=== PATIENT | male | born 1945 | race Caucasian/White ===

== ENCOUNTER 2021-07-14 06:05 | Inpatient (IN) ==
--- NOTE | 2021-06-20 14:06 | PAT Medication Instructions ---
Medication Instructions Date of Service June 20, 2021 Home Medications allopurinol 300 mg tablet 300 mg PO QAM amiodarone 200 mg tablet 200 mg PO QAM bisoprolol fumarate 5 mg tablet 5 mg PO BID bumetanide 2 mg tablet 2 mg PO UD cetirizine 10 mg tablet (Zyrtec) 10 mg PO QAM cholecalciferol (vitamin D3) 125 mcg (5,000 unit) tablet (Vitamin D3) 125 mcg PO QAM clopidogrel 75 mg tablet (Plavix) 75 mg PO QAM coQ10 (ubiquinol) 200 mg capsule 200 mg PO QAM docusate sodium 100 mg tablet (Stool Softener) 100 mg PO HS insulin NPH isoph U-100 human 100 unit/mL (3 mL) subcutaneous pen (Novolin N Flexpen) 50 unit SUBCUT BID insulin regular human 100 unit/mL (3 mL) subcutaneous pen (Novolin R Flexpen) 40 - 50 unit SUBCUT TID krill 350 mg-omega-3 90 mg-dha 24 mg-epa 50 qi-lvrqyli-rgddi capsule ([place]-3 Krill Oil) 1 cap PO QAM magnesium oxide 400 mg PO BID methylprednisolone 4 mg tablet (Medrol) 2 mg PO QAM multivitamin 1 tab PO QAM nitroglycerin 0.4 mg/hr transdermal 24 hour patch 1 patch TRANSDERMAL DAILY pantoprazole 20 mg tablet,delayed release (Protonix) 20 mg PO QAM spironolactone 100 mg tablet (Aldactone) 50 mg PO QAM tramadol 50 mg tablet 50 mg PO Q8H PRN turmeric 400 mg capsule 400 mg PO QAM vitamin B complex 1 tab PO QAM Continue as directed methylprednisolone 4 mg tablet (Medrol) 2 mg PO QAM nitroglycerin 0.4 mg/hr transdermal 24 hour patch 1 patch TRANSDERMAL DAILY (do not apply on or around surgical area) ASK your prescriber and surgeon clopidogrel 75 mg tablet (Plavix) 75 mg PO QAM STOP taking 2 weeks before surgery coQ10 (ubiquinol) 200 mg capsule 200 mg PO QAM krill 350 mg-omega-3 90 mg-dha 24 mg-epa 50 mu-snxlkrz-tsqlp capsule ([place]-3 Krill Oil) 1 cap PO QAM DO NOT take the morning of surgery bumetanide 2 mg tablet 2 mg PO UD cetirizine 10 mg tablet (Zyrtec) 10 mg PO QAM cholecalciferol (vitamin D3) 125 mcg (5,000 unit) tablet (Vitamin D3) 125 mcg PO QAM magnesium oxide 400 mg PO BID multivitamin 1 tab PO QAM spironolactone 100 mg tablet (Aldactone) 50 mg PO QAM turmeric 400 mg capsule 400 mg PO QAM vitamin B complex 1 tab PO QAM insulin regular human 100 unit/mL (3 mL) subcutaneous pen (Novolin R Flexpen) 40 - 50 unit SUBCUT TID Take morning of surgery With a small sip of water, OTHERWISE NOTHING TO EAT OR DRINK AFTER MIDNIGHT: allopurinol 300 mg tablet 300 mg PO QAM amiodarone 200 mg tablet 200 mg PO QAM bisoprolol fumarate 5 mg tablet 5 mg PO BID pantoprazole 20 mg tablet,delayed release (Protonix) 20 mg PO QAM tramadol 50 mg tablet 50 mg PO Q8H PRN(okay to take up to 4 hours prior to surgery if needed) Refer to insulin heading for instructions. Take evening before surgery bisoprolol fumarate 5 mg tablet 5 mg PO BID docusate sodium 100 mg tablet (Stool Softener) 100 mg PO HS magnesium oxide 400 mg PO BID tramadol 50 mg tablet 50 mg PO Q8H PRN(if needed) insulin NPH isoph U-100 human 100 unit/mL (3 mL) subcutaneous pen (Novolin N Flexpen) 50 unit SUBCUT BID Insulin Dependent Diabetic Patients * Test your blood sugar the morning of surgery * If Blood Sugar is GREATER THAN 150, take HALF of your regular dose of: insulin NPH isoph U-100 human 100 unit/mL (3 mL) subcutaneous pen (Novolin N Flexpen) 25 unit SUBCUT * If Blood Sugar is LESS THAN 150, DO NOT TAKE ANY: Other Notes If you have any questions please call us at [phone] or [phone] or [phone] or [phone]
--- NOTE | 2021-06-26 12:19 | Anesthesiology Consultation ---
Date of Service June 26, 2021 Assessment & Plan (1) Encounter for pre-operative examination: - check BSG am DOS. - CKD: will fax optimization note to card maker. Awaiting nephrology response. - cardiac history including 100% occlusion of several coronary arteries: Case discussed with Dr. Santizo who advised obtaining cardiology clearance with clearance to include notation on abnormal stress testing and catheterization. Form completed, awaiting cardiology clearance. - ICD: Awaiting interrogation report from cardiology. No pacer rep needed per Dr. Santizo. - cardiology office visit 04/25/2021: "...experiencing occasional chest discomfort, shortness of breath, dizziness/lightheadedness, and fatigue...occasional episodes of mild to moderate chest discomfort that began years ago and last minutes...heaviness quality...shortness of breath occurs with minimal levels of exertion...episodes of mild lightheadedness began years ago and have been occurring occasionally...fatigue...occurring for years...Pt with multiple complaints, none of which are new or worsening. Fell in the tub; was seated in a tub chair, and slipped on the soapy surface of the tub while trying to stand. Denied dizziness, syncope...PPM interrogation done 04/19/21 showed no new events. Pt denies any firing of ICD...Pt was instructed to hold Flomax for 2 weeks to see if dizziness improves..." - COVID screening: Per assessment on 06/26/2021: Travel screen negative, no known COVID-19 positive contacts or current COVID-19 related symptoms in past 2 weeks. Surgeon arranging preop COVID testing, scheduled 07/12/2021. Awaiting results. Chart Review Chart Review: Pending: Refer to Additional Notes / Consult section and Patient seen in Pre Admission Testing Teaching & Discussion Pre-Anesthesia Teaching/Discussion Notes: Instructed NPO after midnight before surgery, except medications with 15 cc of water. Medication instructions provided according to the PAT guidelines. History Surgery Operation Date: 07/14/21 07:45 Proposed Procedures p L3-S1 Decompression Fusion Spinal Cord Monitoring - Gal Leigh DO Height/Weight Height: 5 ft 11 in Weight: 108.2 kg Allergies Allergy/AdvReac Type Severity Reaction Status Date / Time adhesive tape Allergy Intermediate REMOVES Verified 06/20/21 09:54 SKIN carvedilol [From Coreg] Allergy Intermediate SYNCOPE Verified 06/20/21 09:54 Iodinated Contrast Media Allergy Intermediate HAS KIDNEY Verified 06/20/21 09:54 PROBLEMS Medications Home Medications Medication Instructions Recorded Confirmed Last Taken allopurinol 300 mg tablet 300 mg PO QAM 06/20/21 06/20/21 Unknown amiodarone 200 mg tablet 200 mg PO QAM 06/20/21 06/20/21 Unknown bisoprolol fumarate 5 mg tablet 5 mg PO BID 06/20/21 06/20/21 Unknown bumetanide 2 mg tablet 2 mg PO UD 06/20/21 06/20/21 Unknown cetirizine 10 mg tablet (Zyrtec) 10 mg PO QAM 06/20/21 06/20/21 Unknown cholecalciferol (vitamin D3) 125 125 mcg PO QAM 06/20/21 06/20/21 Unknown mcg (5,000 unit) tablet (Vitamin D3) clopidogrel 75 mg tablet (Plavix) 75 mg PO QAM 06/20/21 06/20/21 Unknown coQ10 (ubiquinol) 200 mg capsule 200 mg PO QAM 06/20/21 06/20/21 Unknown docusate sodium 100 mg tablet 100 mg PO HS 06/20/21 06/20/21 Unknown (Stool Softener) insulin NPH isoph U-100 human 100 50 unit SUBCUT BID 06/20/21 06/20/21 Unknown unit/mL (3 mL) subcutaneous pen (Novolin N Flexpen) insulin regular human 100 unit/mL 40 - 50 unit SUBCUT TID 06/20/21 06/20/21 Unknown (3 mL) subcutaneous pen (Novolin R Flexpen) krill 350 mg-omega-3 90 mg-dha 24 1 cap PO QAM 06/20/21 06/20/21 Unknown mg-epa 50 df-luzdebd-todwi capsule ([place]-3 Krill Oil) magnesium oxide 400 mg PO BID 06/20/21 06/20/21 Unknown methylprednisolone 4 mg tablet 2 mg PO QAM 06/20/21 06/20/21 Unknown (Medrol) multivitamin 1 tab PO QAM 06/20/21 06/20/21 Unknown nitroglycerin 0.4 mg/hr 1 patch TRANSDERMAL DAILY 06/20/21 06/20/21 Unknown transdermal 24 hour patch pantoprazole 20 mg tablet,delayed 20 mg PO QAM 06/20/21 06/20/21 Unknown release (Protonix) spironolactone 100 mg tablet 50 mg PO QAM 06/20/21 06/20/21 Unknown (Aldactone) tramadol 50 mg tablet 50 mg PO Q8H PRN 06/20/21 06/20/21 Unknown turmeric 400 mg capsule 400 mg PO QAM 06/20/21 06/20/21 Unknown vitamin B complex 1 tab PO QAM 06/20/21 06/20/21 Unknown Past Medical History Medical History (Updated 06/26/21 @ 12:41 by Kiley Orozco PA-C) Arthritis Atrial fibrillation Carotid stenosis CHF (congestive heart failure) FOLLOWED BY [facility] (DR. LONG) Chronic kidney disease STAGE 3? Coronary artery disease Degenerative disc disease Diabetes mellitus, type 2 IDDM GERD (gastroesophageal reflux disease) controlled, stable pe rpt Hearing deficit History of COVID-19 03/2020 (HOSPITALIZED BUT NOT INTUBATED AT [facility] FOR DIFFICULTY BREATHING>SHORT TIME OXYGEN USE) Hx of gout Hyperlipidemia Hypertension controlled, stable per pt ICD (implantable cardioverter-defibrillator) in place IMPLANTED 2018 PLACED FOR IRREGULAR HEART BEAT (DR. LONG FOLLOWS) Irregular heart beat Ischemic cardiomyopathy Myocardial Infarction Peripheral neuropathy Peripheral vascular disease Spinal stenosis Transient ischemic attack (TIA) 2002 AFTER CABG>LEFT SIDE MILD FOOT PROBLEMS Valvular heart disease Patient denies h/o seizures, blood clots or blood transfusions. Exercise / Class Metabolic Activity III < 4 Walking/Shop/Light housework (denies CP or SOB; ambulates with rolling walker) Past Family History Family History Father Family history of diabetes mellitus Family hx of colon cancer Other No family history of adverse response to anesthesia Past Surgical History Surgical History History of appendectomy History of cardiac cath MULTIPLE TIMES WITH 20 STENTS IN HEART (LAST PLACED "A COUPLE YEARS AGO") LAST HEART CATH 03/2021 [facility]: 100% COREMAKING MACHINE OPERATOR of mid RCA. 100% occluded SVG to RCA. Prox LAD 100% stenosed. Mild disease of SVG to left Cx. Sig elevated R atrial and R ventricular pressures. Recommendations: max medical therapy. History of cataract surgery LEFT History of coronary artery bypass graft X 4 VESSELS 2 TIMES>1993 AND 2002 AT [facility] History of esophagogastroduodenoscopy (EGD) History of tooth extraction S/P epidural steroid injection Past Anesthesia History No Hx of Anesthesia Complications and No Family Hx of Anesthesia Complications History of PONV No Hx of PONV and No Hx of Motion Sickness Social History Smoking Status: Never smoker Do You Dip or Chew Tobacco: No Hx Alcohol Use: No substance use type: does not use Review of Systems Snoring, sleep study 2 yrs ago negative for sleep apnea per pt. Patient denies chest pain, shortness of breath, fever, chills, cough, wheezing, or palpitations. Physical Exam Vital Signs Vitals BP 103/62 (initial automatic BP 99/59, pt states is usually above 100 had been reclined for EKG denied lightheadedness/dizziness, repeat BP 15 minutes later as shown) P 70 TEMP 98.6 SP02 96% on RA RESP 17 Physical Facial hair/blair Full cervical extension range of motion without pain Full TMJ range of motion TMD 3.5 finger breaths Mallampati Score 2 Dentition: intact, several missing front lower teeth, one front chipped tooth; denies loose teeth, caps/crowns, implants or bridges Lungs: normal respiratory effort. Clear throughout to auscultation, no adventitious breath sounds Cardiac: regular rate and rhythm, no murmurs noted Carotid arteries: negative bruit bilat Extremities: no distal extremity edema Lab Results Anesthesia Preop Results Results Anesthesia Widget: WBC 11.76 K/uL (4.8-10.8) H 06/26/21 Hgb 12.0 g/dL (14.0-18.0) L 06/26/21 Hct 38.4 % (42-52) L 06/26/21 Plt 224 K/uL (130-400) 06/26/21 Na 135 mmol/L (136-145) L 06/26/21 K 4.8 mmol/L (3.5-5.1) 06/26/21 Cl 100 mmol/L (98-107) 06/26/21 CO2 24 mmol/L (21-32) 06/26/21 BUN 83 mg/dl (6-23) H 06/26/21 Creat 2.47 mg/dl (0.6-1.4) H 06/26/21 Glucose Level 282 mg/dl (70-99(Fasting)) H 06/26/21 PT 10.3 Seconds (9.0-12.0) 06/26/21 PTT 26.2 Seconds (21.0-31.0) 06/26/21 INR 1.0 (0.9-1.1) 06/26/21 HA1c 8.2 % (4.5-5.6) H 06/26/21 Urine Color Yellow 06/26/21 Urine Appearance Clear (Clear) 06/26/21 Urine pH 6.0 (4.5-7.5) 06/26/21 Urine Specific [place] 1.011 (1.000-1.030) 06/26/21 Urine Protein Negative (Negative) 06/26/21 Urine Glucose (UA) Negative (Negative) 06/26/21 Urine Ketones Negative (Negative) 06/26/21 Urine Blood Negative (Negative) 06/26/21 Urine Nitrite Negative (Negative) 06/26/21 Urine Bilirubin Negative (Negative) 06/26/21 Urine Urobilinogen Negative (Negative) 06/26/21 Urine Leukocyte Esterase Negative (Negative) 06/26/21 Blood Type A Positive 06/26/21 Antibody Screen NEGATIVE 06/26/21 Lab Comments: Surgeon's office made aware of elevated A1c. Testing Electrocardiogram Date: 06/26/21 poor data quality AV dual-paced rhythm with occasional ventricular-paced complexes Biventricular pacemaker detected Chest X-Ray Date: 10/05/20 Stable CABG and left pacemaker Stable cardiomegaly without pulmonary vascular congestion Prior pulmonary opacities have resolved No pneumonia, pleural effusion or pneumothorax seen Echocardiogram Date: 10/25/20 Technically difficult study Moderate dilation of left ventricle Borderline LVH Severely decreased left ventricular systolic function, EF 25-30% Mild dilation of left ventricle Severe enlargement left atrium Moderate enlargement right atrium Mild to moderate mitral regurgitation Mild tricuspid regurgitation Borderline pulmonary hypertension; estimated pulmonary artery systolic pressure is 44 mmHg Stress Test Date: 12/21/20 Non-diagnostic Mixture of ischemia and focal infarction involving the anterior, septal and inferior llamas Apical infarction with mild residual myocardial ischemia Cardiac Catheterization Date: 03/22/21 100% COREMAKING MACHINE OPERATOR of mid RCA. 100% occluded SVG to RCA. Prox LAD 100% stenosed. Mild disease of SVG to left Cx. Sig elevated R atrial and R ventricular pressures. Recommendations: max medical therapy.
[~2021-07-14 06:05] MED LIST: ACETAMINOPHEN 500 MG TAB PO SCH; CeleBREX 200 MG CAP PO SCH; GABAPENTIN 300 MG CAP PO SCH; SODIUM CHLORIDE 0.9% 1000ML IV SCH; ceFAZolin 2000MG 2,000 MG/15 ML SYR IV SCH
--- NOTE | 2021-07-14 09:12 | History & Physical Bridge Note ---
Date of Service July 14, 2021 History & Physical Bridge Note I have examined the patient, reviewed the History & Physical and in the interval since the performance of the History & Physical I have noted the following changes of clinical significance: no changes noted
--- NOTE | 2021-07-14 09:12 | History & Physical Report ---
Date of Service July 14, 2021 Assessment & Plan (1) Neurogenic claudication due to lumbar spinal stenosis: Plan: L3-S1 decompression fusion History of Present Illness Chief Complaint: Back and leg pain Primary Care Provider: NO PCP This is a 75-year-old male presents with marked decline in status with worsening back and leg pain. Failing course of nonoperative care is here for surgical invention. Allergies Allergy/AdvReac Type Severity Reaction Status Date / Time adhesive tape Allergy Intermediate REMOVES Verified 06/20/21 09:54 SKIN carvedilol [From Coreg] Allergy Intermediate SYNCOPE Verified 06/20/21 09:54 Iodinated Contrast Media Allergy Intermediate HAS KIDNEY Verified 06/20/21 09:54 PROBLEMS Home Medications Medication Instructions Recorded Confirmed Type allopurinol 300 mg tablet 300 mg PO QAM 06/20/21 06/20/21 History amiodarone 200 mg tablet 200 mg PO QAM 06/20/21 06/20/21 History bisoprolol fumarate 5 mg tablet 5 mg PO BID 06/20/21 06/20/21 History bumetanide 2 mg tablet 2 mg PO UD 06/20/21 06/20/21 History cetirizine 10 mg tablet (Zyrtec) 10 mg PO QAM 06/20/21 06/20/21 History cholecalciferol (vitamin D3) 125 125 mcg PO QAM 06/20/21 06/20/21 History mcg (5,000 unit) tablet (Vitamin D3) clopidogrel 75 mg tablet (Plavix) 75 mg PO QAM 06/20/21 06/20/21 History coQ10 (ubiquinol) 200 mg capsule 200 mg PO QAM 06/20/21 07/14/21 History docusate sodium 100 mg tablet 100 mg PO HS 06/20/21 07/14/21 History (Stool Softener) insulin NPH isoph U-100 human 100 22 unit SUBCUT BID 06/20/21 07/14/21 History unit/mL (3 mL) subcutaneous pen (Novolin N Flexpen) insulin regular human 100 unit/mL 40 - 50 unit SUBCUT TID 06/20/21 07/14/21 History (3 mL) subcutaneous pen (Novolin R Flexpen) krill 350 mg-omega-3 90 mg-dha 24 1 cap PO QAM 06/20/21 07/14/21 History mg-epa 50 gr-pdopeip-czkog capsule ([place]-3 Krill Oil) magnesium oxide 400 mg PO BID 06/20/21 07/14/21 History methylprednisolone 4 mg tablet 2 mg PO QAM 06/20/21 07/14/21 History (Medrol) multivitamin 1 tab PO QAM 06/20/21 07/14/21 History nitroglycerin 0.4 mg/hr 1 patch TRANSDERMAL DAILY 06/20/21 07/14/21 History transdermal 24 hour patch pantoprazole 20 mg tablet,delayed 20 mg PO QAM 06/20/21 07/14/21 History release (Protonix) spironolactone 100 mg tablet 50 mg PO QAM 06/20/21 07/14/21 History (Aldactone) tramadol 50 mg tablet 50 mg PO Q8H PRN 06/20/21 07/14/21 History turmeric 400 mg capsule 400 mg PO QAM 06/20/21 07/14/21 History vitamin B complex 1 tab PO QAM 06/20/21 07/14/21 History Past Med/Surg History Medical History (Updated 07/14/21 @ 09:12 by Gal Leigh DO) Arthritis Atrial fibrillation Carotid stenosis CHF (congestive heart failure) FOLLOWED BY [facility] (DR. LONG) Chronic kidney disease STAGE 3?, follows with Dr. Stone Coronary artery disease Degenerative disc disease Diabetes mellitus, type 2 IDDM GERD (gastroesophageal reflux disease) controlled, stable pe rpt Hearing deficit History of COVID-19 03/2020 (HOSPITALIZED BUT NOT INTUBATED AT [facility] FOR DIFFICULTY BREATHING>SHORT TIME OXYGEN USE) Hx of gout Hyperlipidemia Hypertension controlled, stable per pt ICD (implantable cardioverter-defibrillator) in place IMPLANTED 2019 PLACED FOR IRREGULAR HEART BEAT (DR. LONG FOLLOWS) Irregular heart beat Ischemic cardiomyopathy Myocardial Infarction Peripheral neuropathy Peripheral vascular disease Spinal stenosis Transient ischemic attack (TIA) 2002 AFTER CABG>LEFT SIDE MILD FOOT PROBLEMS Valvular heart disease Surgical History History of appendectomy History of cardiac cath MULTIPLE TIMES WITH 20 STENTS IN HEART (LAST PLACED "A COUPLE YEARS AGO") LAST HEART CATH 03/2021 [facility]: 100% DOUBLE HEAD MACHINE OPERATOR of mid RCA. 100% occluded SVG to RCA. Prox LAD 100% stenosed. Mild disease of SVG to left Cx. Sig elevated R atrial and R ventricular pressures. Recommendations: max medical therapy. History of cataract surgery LEFT History of coronary artery bypass graft X 4 VESSELS 2 TIMES>1993 AND 2002 AT [facility] History of esophagogastroduodenoscopy (EGD) History of tooth extraction S/P epidural steroid injection Family History Father Family history of diabetes mellitus Family hx of colon cancer Other No family history of adverse response to anesthesia Social History Smoking Status: Never smoker Second Hand Exposure: Yes (IN THE PAST (WORK EXPOSURE)); Do You Dip or Chew Tobacco: No; Hx Alcohol Use: No Preferred Language: Maltese Greek Professor Required: No Beliefs That Will Affect Care: None Current Living Situation: Spouse Feels Safe at Home: Yes Safety Concerns: Feels Safe At This Time Assistive Devices: Cane, Glasses and Walker Assistive Devices Comment: READING GLASSES Physical Exam Physical Exam: Patient is alert and oriented Heart regular rhythm Lungs clear Results & Data ([facility]) Vital Signs (Past 12 Hours) Vital Signs Temp Pulse Resp BP Pulse Ox 07/14/21 06:45 36.9 C 70 20 109/64 93
[2021-07-14] MEDS ORDERED: BUPIVACAINE/EPINEPHRINE 0.25% 1:200,000 30 ML VIAL ONE (09:22)
[2021-07-14] MEDS ORDERED: ceFAZolin 330 MG/ML 1 GM VIAL ONE (09:22)
[2021-07-14] MEDS ORDERED: ROCURONIUM BROMIDE 10 MG/ML 5 ML VIAL IV ONE (09:27)
[2021-07-14] MEDS ORDERED: MIDAZOLAM HCL 1 MG/ML 2ML VIAL ONE (09:27)
[2021-07-14] MEDS ORDERED: fentaNYL citrate 100 MCG/2 ML VIAL ONE ×3 (09:27→13:29)
[2021-07-14] MEDS ORDERED: PROPOFOL IV EMULSION 10 MG/ML 20 ML VIAL IV ONE (09:27)
[2021-07-14] MEDS ORDERED: LIDOCAINE 2% 2 ML VIAL/AMP(20MG/ML) INFIL ONE (09:27)
[2021-07-14] MEDS ORDERED: EPINEPHRINE IV ONE (10:00)
[2021-07-14] MEDS ORDERED: SODIUM CHLORIDE IV ONE (10:00)
[2021-07-14] MEDS ORDERED: ePHEDrine sulfate 50 MG/ML AMP ONE (11:16)
[2021-07-14] MEDS ORDERED: SUGAMMADEX SODIUM 200 MG/2 ML VIAL IV ONE (11:24)
[2021-07-14] MEDS ORDERED: FLOSEAL HEMOSTATIC MATRIX 10ML TOP ONE (11:30)
[2021-07-14] MEDS ORDERED: ONDANSETRON INJ 2 MG/ML 2 ML VIAL ONE (11:46)
[2021-07-14] MEDS ORDERED: ALBUMIN HUMAN 5% 12.5 GM/250 ML VIAL IV ONE (12:13)
--- NOTE | 2021-07-14 12:54 | Operative Report ---
Post Operative Report Pre & Post Diagnosis Operation Date: 07/14/21 09:05 Pre-Op Diagnosis: Spinal Stenosis of Lumbar Region with Radiculopathy Post-Op Diagnosis: Spinal Stenosis of Lumbar Region with Radiculopathy I identified the patient and participated in the time-out.: Yes Procedure Operation Date: 07/14/21 09:05 Actual Procedures #1 lumbar decompression with bilateral medial facetectomies and foraminotomies L3-L4 L4-5. #2 posterior spinal fusion L3-L4 L4-5. #3 placed posterior instrumentation L3-L4 L4-5. #4 interbody fusion L4-L5. #5 placement of titanium cage 14 x 26 mm at L4-L5. #6 placement locally harvested morselized autograft in the posterior gutters. #7 placement infuse collagen sponge, master graft in the posterior lateral gutters and I factor interbody space. Surgeon Gal Leigh, Permaculture Designer Luke Melendez Estimated Blood Loss 300 Findings See Below Patient is 5 foot 11 inches tall weighing over 107 kg with a BMI of 33. Patient body habitus did contribute to significant technical difficulty required deepest retractors longus instruments in order to perform his procedure. This had at least 50% increased operative time. Specimens None Indications This is a 75-year-old male presents with severe limitations with back and bilateral leg pain. Despite significant cardiac risk he wanted to pursue surgery. After careful review with the patient and his proceed with surgery. Description of Procedure Patient met with identified informed consent obtained. Patient was then taken to the operative suite underwent intubation placed in a prone position is acceptable center frame. All bony prominences well-padded eyes inspected to ensure no external pressure placed upon the. This point the lumbar spine was prepped and draped in normal sterile fashion. Sharp dissection with the assistance of Bovie cautery was performed down to and exposing the lamina and transverse processes of L3-L4-L5 bilaterally. From caudal cephalad fashion complete laminectomy of L4 L3 was performed including bilateral medial facet ectomies foraminotomies addressing severe spinal stenosis. Pedicle screws were then placed in L3 on L4-L5 bilaterally with assistance of fluoroscopy and appropriate sized neris placed. By way of a transforaminal portion radically discectomy of L4-L5 was performed endplates curetted to subcortical being bone and a 14 x 26 mm titanium cage filled with I factor tapped in position. The rods were then compressed locked into final position bilaterally. The transverse processes of L3 L4-5 burred to subcortical bleeding bone. Infuse collagen sponge master graft lobe autograft was placed in the posterior gutters. 15 round LATOSHA drain inserted. Incision was then closed with 1 Vicryl the fascia 2-0 Vicryl subcutaneously and 4 Monocryl for final skin closure. Steri-Strip sterile dressings placed. Patient will continue PACU stable addition. Please note spinal cord monitoring was utilized at the procedure no changes noted. Lastly Luke Melendez was present at the entire surgery and while the patient positioning complex portions of the surgery and final skin closure. I attest to the content of the Intraoperative Record and any orders documented therein. Any exceptions are noted below.
[2021-07-14] MEDS ORDERED: ATROPINE SULFATE 0.1 MG/ML 10ML SYR IV PRN (13:28)
[2021-07-14] MEDS ORDERED: ONDANSETRON INJ 2 MG/ML 2 ML VIAL IV PRN ×2 (13:28→15:15)
[2021-07-14] MEDS ORDERED: ePHEDrine sulfate 50 MG/ML AMP IV PRN (13:28)
--- NOTE | 2021-07-14 13:32 | Fluoroscopy Report ---
FL lumbar spine 2-3V CLINICAL HISTORY: L3-S1 DECOMPRESSION AND FUSION WITH INTERBODY COMPARISON STUDY: None. FLUOROSCOPY TIME: 23 seconds. 2 fluoroscopic spot images of the lumbar spine.. FINDINGS: Posterior decompression and fusion from L3 through L5 with pedicle screws and rods. The mally dware appears intact. There is an L4-5 disc spacer present. IMPRESSION: Fluoroscopic assistance provided for L3-L5 posterior decompression and fusion ACT 112: Negative or not required by law. Electronically signed by: Deni Johnston M.D. 07/14/2021 1:31 PM
[2021-07-14] MEDS: fentaNYL citrate 100 MCG/2 ML VIAL IV PRN ×2 (13:33→13:43)
[2021-07-14] MEDS: HYDROmorphone INJ 1 MG/ML SYRINGE IV PRN ×2 (13:55→14:05)
--- NOTE | 2021-07-14 14:17 | XRay Report ---
XR chest 1V portable HISTORY: evaluate for central line placement COMPARISON: None. FINDINGS: No pneumothorax. No pleural effusions. There is a right jugular central venous catheter ter minates at the SVC. There is left-sided pacemaker noted. There are poststernotomy changes. The heart is enlarged. There is mild central pulmonary vascular congestion without overt edema. No focal lung c onsolidations to suggest pneumonia. IMPRESSION: 1. Right jugular central venous catheter terminates at the SVC. 2. No pneumothorax. 3. Cardiomegaly with mild congestive change. ACT 112: Negative or not required by law. Electronically signed by: Deni Johnston M.D. 07/14/2021 2:16 PM
--- NOTE | 2021-07-14 14:22 | Procedure Note ---
Procedure Note Date of Service July 14, 2021 Note Radial arterial line placed in OR4 prior to induction in preparation for back surgery with Dr. Leigh. Left wrist prepped with chlorhexidine and draped with sterile towels. Site infiltrated with 1 cc of 1% lidocaine. 20 G angiocath placed under sterile technique with ultrasound guidance utilizing sterile gloves, surgical hats and masks. Catheter threaded using seldinger technique with return of pulsatile, bright red blood. Site covered with occlusive dressing and taped in place. Waveform consistent with correct arterial placement. After placement, fingers of procedural hand had normal perfusion. Patient tolerated procedure well without complications. Kiara Contreras MD, PhD Anesthesiologist Coding
--- NOTE | 2021-07-14 14:26 | Procedure Note ---
Procedure Note Date of Service July 14, 2021 Note Central Line Placement Note Consent: Informed consent obtained from the patient and designated proxy. The inherent risks, expected benefits, treatment alternatives, as well as the technical aspects of the procedure were discussed and a full explanation was given. All questions were answered. Procedure: The central line was placed in OR 4 after induction in preparation for back surgery with Dr. Leigh. A time out was performed verifying the correct patient with two identifiers, procedure, site, positioning, and equipment. Monitors were attached including EKG, pulse ox, and blood pressure. The patient was induced and intubated. Prior to initiating the procedure, the proceduralist washed their hands. The proceduralist wore a surgical hat and mask as well as sterile gloves and gown. The right IJ was prepped with chl orhexidine and draped in sterile fashion. The patient was positioned in trendelenburg and the vein identified using ultrasound guidance. There was good return of nonpulsatile blood after needle placement. The guidewire threaded easily and was verified in the vein by ultrasound. The accessed vessel was dilated and a triple lumen catheter was introduced into the right IJ over the wire. The guidewire was removed and each lumen of the catheter was aspirated and flushed. The catheter was sutured in place at 18 cm. An antibiotic disc was placed and the site covered in a sterile, occlusive dressing. Post-procedure: The patient was hemodynamically stable throughout and tolerated the procedure well without apparent complications. Post placement CXR was ordered and reviewed. No pneumothorax and central line terminates in SVC. Kiara Contreras MD, PhD Anesthesiologist Coding
--- NOTE | 2021-07-14 14:41 | Anesthesiology Progress Note ---
Date of Service July 14, 2021 Anesthesia Post Procedure Vital Signs Vital Signs: Temp Pulse Pulse Resp BP BP Pulse Ox 07/14/21 14:20 36.4 C L 70 12 134/76 127/56 L 98 07/14/21 14:10 36.4 C L 70 10 L 135/78 135/56 L 97 07/14/21 14:00 36.4 C L 70 10 L 153/85 H 158/77 H 98 07/14/21 13:50 70 10 L 152/76 H 139/79 100 07/14/21 13:40 71 10 L 149/86 H 100 07/14/21 13:30 70 14 152/82 H 100 07/14/21 13:23 36.1 C L 77 16 139/78 98 07/14/21 06:45 36.9 C 70 20 109/64 93 Pain Intensity Back: Pain Intensity: 4 Transfer of Care Handoff Completed per policy Notes Mental Status: alert / awake / arousable and participated in evaluation Patient Amnestic to Procedure: Yes Nausea / Vomiting: adequately controlled Pain: adequately controlled Airway Patency, RR, SpO2: stable & adequate BP & HR: stable & adequate Hydration State: stable & adequate Anesthetic Complications: no major complications apparent and Pt Satisfied with anesthetic care
[2021-07-14] MEDS ORDERED: LORazepam 2 MG/1 ML VIAL IV PRN (15:15)
[2021-07-14] MEDS ORDERED: FAMOTIDINE 20 MG TAB PO PRN (15:15)
[2021-07-14] MEDS ORDERED: ALUMINUM/MAGNESIUM SUSP 30 ML UDC PO PRN (15:15)
[2021-07-14] MEDS ORDERED: ACETAMINOPHEN 1,000 MG/100 ML VIAL IV PRN (15:15)
[2021-07-14] MEDS ORDERED: MAGNESIUM HYDROXIDE SUSP 30 ML UDC PO PRN (15:15)
[2021-07-14] MEDS ORDERED: NALOXONE HCL 0.4 MG/1 ML VIAL/CARP IV PRN (15:15)
[2021-07-14] MEDS ORDERED: ONDANSETRON 4 MG OD TAB PO PRN (15:15)
[2021-07-14] MEDS ORDERED: SOD PHOSPHATE/SOD BIPHOSPHATE ENEMA 132 ML BTL PR PRN (15:15)
[2021-07-14] MEDS ORDERED: HYDROmorphone INJ 0.5 MG/0.5 ML SYR IV PRN (15:15)
[2021-07-14] MEDS ORDERED: bisacodyL 10 MG SUPP PR PRN (15:15)
[2021-07-14] MEDS ORDERED: PHARMACY GLYCEMIC MGMT CONSULT PRN (15:15)
[2021-07-14] MEDS ORDERED: LORazepam 0.5 MG TAB PO PRN (15:15)
[2021-07-14] MEDS ORDERED: DO NOT ADMINISTER PNEUMOCOCCAL VACCINE PRN (15:15)
[2021-07-14] MEDS ORDERED: DO NOT ADMINISTER FLU VACCINE PRN (15:15)
[2021-07-14] MEDS ORDERED: METOCLOPRAMIDE HCL INJ 5 MG/ML 2 ML VIAL IV PRN (15:15)
[2021-07-14] MEDS ORDERED: PROMETHAZINE HCL 12.5 MG in SODIUM CHLORIDE 0.9% 50 ML IV PRN (15:15)
[2021-07-14] MEDS ORDERED: diphenhydrAMINE Capsule 25 MG CAP PO PRN (15:15)
--- NOTE | 2021-07-14 15:24 | Critical Care Consultation ---
Date of Consultation July 14, 2021 Assessment & Plan (1) Neurogenic claudication due to lumbar spinal stenosis: (2) ICD (implantable cardioverter-defibrillator) in place: (3) Hypertension: (4) Diabetes mellitus, type 2: (5) Chronic kidney disease: (6) CHF (congestive heart failure): (7) Atrial fibrillation: Patient is a 75-year-old male with an extensive cardiac history presenting to the ICU for monitoring status post L3-S1 therapeutic fusion. Patient is hemodynamically stable at this time. Neuro CAM ICU negative. PT/OT when medically stable Pulmonology No problems at this time saturating at 91% on room air. Consider incentive spirometer due to likely long period of bedrest and hospitalization status post surgery. Cardiovascular History of atrial fibrillation, previous MN with multiple stent placements, congestive heart failure, and ICD. Continue amiodarone, bisoprolol, Plavix, and spironolactone. Hold Bumex at this time. EKG ordered. Renal/electrolytes ICU electrolyte replacement protocol. Patient has a history of CKD 3. Monitor creatinine daily. GI/diet Give 1 dose of Phenergan for nausea. Patient did have a QTC calculated by myself at 502 using the Baxley formula. Any additional doses I would give with caution. Carb consistent diet. Neri catheter in place. Monitor I's and O's. Endo No history of thyroid disease. ICU glycemic protocol with history of type 2 diabetes. Heme-onc CBC overall within normal limits. DVT prophylaxis per Ortho. SCDs for DVT prophylaxis for now. MSK Status post fusion of L3-S1. Recommendations and pain control per orthopedic surgery. Disposition: Monitor in the ICU status post L3-S1 therapeutic fusion due to extensive history of cardiovascular disease. After observation, patient can be downgraded. CODE STATUS: Full code Supervising Physician Co-Signing Physician Notes Dr. Osei was resident physician during care of patient. I separately evaluated patient for brewster portions of the history and the exam. I was present during the critical portion of medical decision making, and I discussed the case with the resident. I generally agree with the findings and plan. Patient with very extensive cardiac history. Extensive lower back surgery today requires intensive monitoring. Currently chest pain-free. History of Present Illness Attending Physician: Gal Leigh DO History of Present Illness Patient is a 75-year-old male with a past medical history of atrial fibrillation, congestive heart failure, CKD 3, DM 2, hypertension, previous myocardial infarction, and spinal stenosis presenting to the hospital for fusion of L3-S1 performed by Dr. Leigh. When discussing the patient, he does report that he is experiencing nausea and has had 2 episodes of vomiting. He did receive a dose of Zofran postop. Otherwise patient does not have the complaint of chest pain or shortness of breath at this time. Does report a 5-6 out of 10 back pain, but this is typical for him as he has a history of chronic low back pain. Patient reports that he did have a heart attack in the 90s and has since had multiple stents placed. No other complaints at this time. Allergies Allergy/AdvReac Type Severity Reaction Status Date / Time adhesive tape Allergy Intermediate REMOVES Verified 06/20/21 09:54 SKIN carvedilol [From Coreg] Allergy Intermediate SYNCOPE Verified 06/20/21 09:54 Iodinated Contrast Media Allergy Intermediate HAS KIDNEY Verified 06/20/21 09:54 PROBLEMS Home Medications Medication Instructions Recorded Confirmed Type allopurinol 300 mg tablet 300 mg PO QAM 06/20/21 06/20/21 History amiodarone 200 mg tablet 200 mg PO QAM 06/20/21 06/20/21 History bisoprolol fumarate 5 mg tablet 5 mg PO BID 06/20/21 06/20/21 History bumetanide 2 mg tablet 2 mg PO UD 06/20/21 06/20/21 History cetirizine 10 mg tablet (Zyrtec) 10 mg PO QAM 06/20/21 06/20/21 History cholecalciferol (vitamin D3) 125 125 mcg PO QAM 06/20/21 06/20/21 History mcg (5,000 unit) tablet (Vitamin D3) clopidogrel 75 mg tablet (Plavix) 75 mg PO QAM 06/20/21 06/20/21 History coQ10 (ubiquinol) 200 mg capsule 200 mg PO QAM 06/20/21 07/14/21 History docusate sodium 100 mg tablet 100 mg PO HS 06/20/21 07/14/21 History (Stool Softener) insulin NPH isoph U-100 human 100 22 unit SUBCUT BID 06/20/21 07/14/21 History unit/mL (3 mL) subcutaneous pen (Novolin N Flexpen) insulin regular human 100 unit/mL 40 - 50 unit SUBCUT TID 06/20/21 07/14/21 History (3 mL) subcutaneous pen (Novolin R Flexpen) krill 350 mg-omega-3 90 mg-dha 24 1 cap PO QAM 06/20/21 07/14/21 History mg-epa 50 [id number] capsule ([employer]-3 Krill Oil) magnesium oxide 400 mg PO BID 06/20/21 07/14/21 History methylprednisolone 4 mg tablet 2 mg PO QAM 06/20/21 07/14/21 History (Medrol) multivitamin 1 tab PO QAM 06/20/21 07/14/21 History nitroglycerin 0.4 mg/hr 1 patch TRANSDERMAL DAILY 06/20/21 07/14/21 History transdermal 24 hour patch pantoprazole 20 mg tablet,delayed 20 mg PO QAM 06/20/21 07/14/21 History release (Protonix) spironolactone 100 mg tablet 50 mg PO QAM 06/20/21 07/14/21 History (Aldactone) tramadol 50 mg tablet 50 mg PO Q8H PRN 06/20/21 07/14/21 History turmeric 400 mg capsule 400 mg PO QAM 06/20/21 07/14/21 History vitamin B complex 1 tab PO QAM 06/20/21 07/14/21 History Patient History Medical History (Updated 07/14/21 @ 16:31 by Nasrin Valenzuela PA-C) Arthritis Atrial fibrillation Carotid stenosis CHF (congestive heart failure) FOLLOWED BY [facility] (DR. LONG) Chronic kidney disease STAGE 3?, follows with Dr. Stone Coronary artery disease Degenerative disc disease Diabetes mellitus, type 2 IDDM GERD (gastroesophageal reflux disease) controlled, stable pe rpt Hearing deficit History of COVID-19 03/2020 (HOSPITALIZED BUT NOT INTUBATED AT [facility] FOR DIFFICULTY BREATHING>SHORT TIME OXYGEN USE) Hx of gout Hyperlipidemia Hypertension controlled, stable per pt ICD (implantable cardioverter-defibrillator) in place IMPLANTED 2018 PLACED FOR IRREGULAR HEART BEAT (DR. LONG FOLLOWS) Irregular heart beat Ischemic cardiomyopathy Myocardial Infarction Peripheral neuropathy Peripheral vascular disease Spinal stenosis Transient ischemic attack (TIA) 2002 AFTER CABG>LEFT SIDE MILD FOOT PROBLEMS Valvular heart disease Surgical History History of appendectomy History of cardiac cath MULTIPLE TIMES WITH 20 STENTS IN HEART (LAST PLACED "A COUPLE YEARS AGO") LAST HEART CATH 03/2021 [facility]: 100% PEDIATRIC CRITICAL CARE NURSE of mid RCA. 100% occluded SVG to RCA. Prox LAD 100% stenosed. Mild disease of SVG to left Cx. Sig elevated R atrial and R ventricular pressures. Recommendations: max medical therapy. History of cataract surgery LEFT History of coronary artery bypass graft X 4 VESSELS 2 TIMES>1993 AND 2002 AT [facility] History of esophagogastroduodenoscopy (EGD) History of tooth extraction S/P epidural steroid injection Family History Father Family history of diabetes mellitus Family hx of colon cancer Other No family history of adverse response to anesthesia Social History Smoking Status: Never smoker Second Hand Exposure: Yes (IN THE PAST (WORK EXPOSURE)); Do You Dip or Chew Tobacco: No; Hx Alcohol Use: No Preferred Language: Nepali Shelter Advocate Required: No Beliefs That Will Affect Care: None Current Living Situation: Spouse Feels Safe at Home: Yes Safety Concerns: Feels Safe At This Time Assistive Devices: Oxygen - Continuous Assistive Devices Comment: READING GLASSES Review of Systems Review of Systems: All systems reviewed & are unremarkable except as noted in HPI & below Physical Exam Constitutional: WD/WN, vitals as above cooperative; no acute distress Eyes: PERRL, conjunctivae normal, anicteric sclerae Neck: trachea midline, no thyromegaly Respiratory: normal respiratory effort, lungs clear to auscultation Cardiovascular: RRR, no murmur, no edema Gastrointestinal (Abdomen): normal bowel sounds, soft, nontender, no hepatosplenomegaly Musculoskeletal: Head/Neck/Chest: normocephalic and head atraumatic Skin: no rashes, warm and dry Neurologic: moves all extremities Psychiatric: A+Ox3, euthymic affect Orientation: cooperative Genitourinary: Neri catheter in place. Results & Data Results & Data ([facility]) Vital Signs (Past 12 Hours) Vital Signs Temp Pulse Pulse Resp BP BP Pulse Ox 07/14/21 14:20 36.4 C L 70 12 134/76 127/56 L 98 07/14/21 14:10 36.4 C L 70 10 L 135/78 135/56 L 97 07/14/21 14:00 36.4 C L 70 10 L 153/85 H 158/77 H 98 07/14/21 13:50 70 10 L 152/76 H 139/79 100 07/14/21 13:40 71 10 L 149/86 H 100 07/14/21 13:30 70 14 152/82 H 100 07/14/21 13:23 36.1 C L 77 16 139/78 98 07/14/21 06:45 36.9 C 70 20 109/64 93 Resident Activity Tracking Resident Involvement: Resident Care Provided Care Provided: Adult Hospital Medicine
[2021-07-14] MEDS: dexAMETHasone 6 MG in SYRINGE 0 ML IV SCH (16:06)
[2021-07-14] MEDS: SODIUM CHLORIDE 0.9% 1000ML 1,000 ML IV SCH (16:06)
[2021-07-14 16:13] LABS: Basophils # (auto) 0.02 K/uL (0-0.2); Basophils % (auto) 0.1 %; Eosinophils # (auto) 0.12 K/uL (0-0.5); Eosinophils % (auto) 0.9 %; Immature Granulocytes # (auto) 0.15 K/uL (0.00-0.02); Immature Granulocytes % (auto) 1.1 %; Lymphocytes # (auto) 1.42 K/uL (1.2-3.4); Lymphocytes % (auto) 10.4 %; Mean Corpuscular Hemoglobin 30.7 pg (25-34); Mean Platelet Volume 9.3 fL (7.4-10.4); Monocytes # (auto) 1.31 K/uL (0.11-0.59); Monocytes % (auto) 9.6 %; Neutrophils # (auto) 10.61 K/uL (1.4-6.5); Neutrophils % (auto) 77.9 %; Nucleated RBC # (auto) 0.02 K/uL (0-0); Nucleated RBC % (auto) 0.1 %; Platelet Count 185 K/uL (130-400); RDW Coefficient of Variation 17.2 % (11.5-14.5); RDW Standard Deviation 59.6 fL (36.4-46.3); Red Blood Count 3.58 M/uL (4.7-6.1); White Blood Count 13.63 K/uL (4.8-10.8)
[2021-07-14] MEDS ORDERED: GLUCAGON FOR INJ 1 MG VIAL IM PRN (16:15)
[2021-07-14] MEDS ORDERED: GLUCOSE 10 TABS/TUBE PO PRN (16:15)
[2021-07-14] MEDS ORDERED: DEXTROSE 50% 50 ML SYRINGE IV PRN (16:15)
[2021-07-14] MEDS ORDERED: GLUCOSE 40% GEL 15 GM TUBE PO PRN (16:15)
[2021-07-14] MEDS ORDERED: CARBOHYDRATES FOR HYPOGLYCEMIA PO PRN (16:15)
--- NOTE | 2021-07-14 16:29 | Hospitalist Consultation ---
Date of Consultation July 14, 2021 Assessment & Plan (1) Neurogenic claudication due to lumbar spinal stenosis: - Pain management, bowel regimen and DVT ppx per the primary team - PT/OT consults - Follow am CBC to monitor for acute blood loss, hgb of 11.0 earlier today - Was nauseous and vomitted twice after surgery, pt given dose of zofran and now dose of phergan per ICU. Elevated QTC so would avoid prolonging QT medications if at all possible. - Schaffer catheter in place - Observation overnight in the ICU (2) Coronary artery disease: (3) ICD (implantable cardioverter-defibrillator) in place: (4) Atrial fibrillation: (5) CHF (congestive heart failure): (6) Hypertension: (7) Hyperlipidemia: - Has undergone multiple cardiac caths with 20 STENTS IN HEART (LAST PLACED "A COUPLE YEARS AGO"), Last cardiac cath in Mar 2021 at [facility]: 100% INTERNAL GRINDER SET UP OPERATOR of mid RCA. 100% occluded SVG to RCA. Prox LAD 100% stenosed. Mild disease of SVG to left Cx. Sig elevated R atrial and R ventricular pressures. - History of coronary artery bypass graft X 4 vessels twice- 1993 and 2002 at [facility] - No chest pain currently or SOB - Rate controlled with amiodarone - Cont medical management with bisoprolol fumarate, bumex 2 mg QAM, sprionolactone - Plavix to be resumed as early as possible - currently on hold - Maintaining sats at 91% on 3L via NC, incentive spirometry/flutter therapy - Last echo was reviewed from October 2020 - shows poor EF of 25-30%, left ventricular hypertrophy, mild to moderate MR, mild TR, estimated pulm artery systolic pressure is 44 mmHg,diastolic dysfunction not assessed as he was in afib when the study was conducted. - Maintaining sats at 91% on 3L via NC, incentive spirometry/flutter therapy (8) Diabetes mellitus, type 2: - Cont ISS with accuchecks achs - Last A1C 8.2 earlier this month, diet and exercise to be encouraged - Exopthalmos of the eyes, no hx of thyroid disease (9) Chronic kidney disease: - hx of such, follows with nephrology as an outaptient DVT ppx : - teds, scds CODE: Full code Dispo: From home, likely to remain in the hospital x 2 days. Patient will require close observation. Thank you for involving us in the care of Mr. Phelps . Please do not hesitate to call with questions or concerns. At this time medicine service will follow along. Supervising Physician Co-Signing Physician Notes Care coordinated with Nasrin Valenzuela PA-C. Agree with above note. Patient seen and examined. Please refer to her notes for full details. Vital signs reviewed. Physical exam: General exam: Alert and oriented. Drowsy. Not in acute distress. CVS: S1 and S2 heard, regular rate and rhythm, no murmurs. RS: Clear to auscultation, no wheezing or crackles. ABD: Soft, bowel sounds present, nontender, no distention. MATH SPECIALIST: Nonfocal. EXT: No edema, no erythema. Labs: Reviewed. Assessment and plan: 75M with multpile medical problems as listed above, mainly cad s/p cabg and multiple stents(20), Hx of CHF EF 25-30%, Hx of VT is s/p back surgery and because of hifgh risk is monitored in ICU. Patinet is some what drowsy but answering appropriately. Denies any chest pain or sob, no nausea or abdominal pain. Hemodynamics stable. s/p back surgery management as per ortho. hx of cad s/p cabg and multiple stents currently stable. Home meds. To rsume plavix as soon as possible Hx pof CHF hx of VT ef 25-30% s/p ICD on bisoprolol, bumex and aldactone monitor for volume overload. Other diagnosis and plan of care as per Nasirn Valenzuela PA-C. Hardeep gramajo MD. History of Present Illness Reason for Consultation: Medical management Requesting Physician: Dr. Leigh Attending Physician: Gal Leigh, History of Present Illness This is a 75 yo M with PMhx of type 2 diabetes mellitus, chronic systolic CHF secondary to ischemic cardiomyopathy, afib, prior ICD insertion, CAD with prior CABG x 4 (twice) and multiple stents (20 stents with last cath in Mar 2021 at [facility]) recurrent VT, HTN, HLD, peripheral vascular disease, valvular heart disea, carotid narrowing, CKD stage III and baseline creatinines about 1.6-1.9, obesity. He has previously followed with [facility]. He has been deemed high risk for intraoperative cardiac event with lumbar back surgery, therefore has been placed in the ICU for close monitoring postoperatively. Pt underwent L3-L5 lumbar decompression and bilateral medial facetectomy and foraminotomies by Dr. Leigh earlier today on 07/14/2021. Pt is groggy, but awakens easily at bedside, he reports that he is not yet able to feel light touch on his lower extremities but he is able to wiggle his toes and move his knees. Knows where he is, and knows that surgery is over. He confirms that he has had 20 stents placed in his heart and follows with cardiology as an outpatient routinely. Last Bm was yesterday. He denies any current chest pain or shortness of breath .He reports that his back pain is rated as a 5/10 but is tolerating it. He is sitting up at bedside because of feeling nauseous, and has vomited x2 in the ICU postoperatively. Allergies Allergy/AdvReac Type Severity Reaction Status Date / Time adhesive tape Allergy Intermediate REMOVES Verified 06/20/21 09:54 SKIN carvedilol [From Coreg] Allergy Intermediate SYNCOPE Verified 06/20/21 09:54 Iodinated Contrast Media Allergy Intermediate HAS KIDNEY Verified 06/20/21 09:54 PROBLEMS Home Medications Medication Instructions Recorded Confirmed Type allopurinol 300 mg tablet 300 mg PO QAM 06/20/21 06/20/21 History amiodarone 200 mg tablet 200 mg PO QAM 06/20/21 06/20/21 History bisoprolol fumarate 5 mg tablet 5 mg PO BID 06/20/21 06/20/21 History bumetanide 2 mg tablet 2 mg PO UD 06/20/21 06/20/21 History cetirizine 10 mg tablet (Zyrtec) 10 mg PO QAM 06/20/21 06/20/21 History cholecalciferol (vitamin D3) 125 125 mcg PO QAM 06/20/21 06/20/21 History mcg (5,000 unit) tablet (Vitamin D3) clopidogrel 75 mg tablet (Plavix) 75 mg PO QAM 06/20/21 06/20/21 History coQ10 (ubiquinol) 200 mg capsule 200 mg PO QAM 06/20/21 07/14/21 History docusate sodium 100 mg tablet 100 mg PO HS 06/20/21 07/14/21 History (Stool Softener) insulin NPH isoph U-100 human 100 22 unit SUBCUT BID 06/20/21 07/14/21 History unit/mL (3 mL) subcutaneous pen (Novolin N Flexpen) insulin regular human 100 unit/mL 40 - 50 unit SUBCUT TID 06/20/21 07/14/21 History (3 mL) subcutaneous pen (Novolin R Flexpen) krill 350 mg-omega-3 90 mg-dha 24 1 cap PO QAM 06/20/21 07/14/21 History mg-epa 50 lm-pvokjli-kwrwj capsule ([place]-3 Krill Oil) magnesium oxide 400 mg PO BID 06/20/21 07/14/21 History methylprednisolone 4 mg tablet 2 mg PO QAM 06/20/21 07/14/21 History (Medrol) multivitamin 1 tab PO QAM 06/20/21 07/14/21 History nitroglycerin 0.4 mg/hr 1 patch TRANSDERMAL DAILY 06/20/21 07/14/21 History transdermal 24 hour patch pantoprazole 20 mg tablet,delayed 20 mg PO QAM 06/20/21 07/14/21 History release (Protonix) spironolactone 100 mg tablet 50 mg PO QAM 06/20/21 07/14/21 History (Aldactone) tramadol 50 mg tablet 50 mg PO Q8H PRN 06/20/21 07/14/21 History turmeric 400 mg capsule 400 mg PO QAM 06/20/21 07/14/21 History vitamin B complex 1 tab PO QAM 06/20/21 07/14/21 History Patient History Medical History (Updated 07/14/21 @ 16:31 by Nasrin Valenzuela PA-C) Arthritis Atrial fibrillation Carotid stenosis CHF (congestive heart failure) FOLLOWED BY [facility] (DR. LONG) Chronic kidney disease STAGE 3?, follows with Dr. Stone Coronary artery disease Degenerative disc disease Diabetes mellitus, type 2 IDDM GERD (gastroesophageal reflux disease) controlled, stable pe rpt Hearing deficit History of COVID-19 03/2020 (HOSPITALIZED BUT NOT INTUBATED AT [facility] FOR DIFFICULTY BREATHING>SHORT TIME OXYGEN USE) Hx of gout Hyperlipidemia Hypertension controlled, stable per pt ICD (implantable cardioverter-defibrillator) in place IMPLANTED 2019 PLACED FOR IRREGULAR HEART BEAT (DR. LONG FOLLOWS) Irregular heart beat Ischemic cardiomyopathy Myocardial Infarction Peripheral neuropathy Peripheral vascular disease Spinal stenosis Transient ischemic attack (TIA) 2003 AFTER CABG>LEFT SIDE MILD FOOT PROBLEMS Valvular heart disease Surgical History History of appendectomy History of cardiac cath MULTIPLE TIMES WITH 20 STENTS IN HEART (LAST PLACED "A COUPLE YEARS AGO") LAST HEART CATH 03/2021 [facility]: 100% INTERNAL GRINDER SET UP OPERATOR of mid R CA. 100% occluded SVG to RCA. Prox LAD 100% stenosed. Mild disease of SVG to left Cx. Sig elevated R atrial and R ventricular pressures. Recommendations: max medical therapy. History of cataract surgery LEFT History of coronary artery bypass graft X 4 VESSELS 2 TIMES>1993 AND 2002 AT [facility] History of esophagogastroduodenoscopy (EGD) History of tooth extraction S/P epidural steroid injection Family History Father Family history of diabetes mellitus Family hx of colon cancer Other No family history of adverse response to anesthesia Social History Smoking Status: Never smoker Second Hand Exposure: Yes (IN THE PAST (WORK EXPOSURE)); Do You Dip or Chew Tobacco: No; Hx Alcohol Use: No Preferred Language: Kyrgyz Hospitality Intern Required: No Beliefs That Will Affect Care: None Current Living Situation: Spouse Feels Safe at Home: Yes Safety Concerns: Feels Safe At This Time Assistive Devices: Cane, Glasses and Walker Assistive Devices Comment: READING GLASSES Review of Systems Review of Systems: Constitutional: No fever, sweats or chills Eyes: No diplopia, no worsening or blurred vision ENT: normal hearing, no trouble swallowing Respiratory: No cough, sputum, dyspnea at rest or on exertion Cardiovascular: No chest pain, tightness or palpitations Abdomen: No pain, + nausea, + vomiting, no diarrhea or constipation Back: Pain as above, described per HPI Musculoskeletal: No joint pain, calf pain, swelling Neurologic: No weakness, numbness/tingling, or balance problems, currently still numb status post surgical intervention Psychiatric: No anxiety or depression Skin: No rash or itch Physical Exam Physical Exam: General: awake, alert, no apparent distress Head: Normocephalic, atraumatic ENT: PERRL, EOMI, + exophthalmos, mucous membranes moist, right triple-lumen IJ placed Chest: Clear to auscultation, on room air, no adventitious breath sounds Cardiac: Regular rate and rhythm, no murmur, no JVD, normal peripheral pulses, good capillary refill Abdominal: NABS x 4 quadrants, soft, nondistended, nontender to palpation, no rebound or guarding : schaffer catheter in place draining clear yellow urine Back: Dressing C/D/I, LATOSHA drain draining bloody serosanguineous fluid Extremities: Normal inspection, no peripheral edema or erythema, calfs nontender to palpation Psych: Normal mood and affect Neuro: AAO x 3, no gross motor deficits, speech is clear, + bilateral distal lower extremity peripheral sensory deficits status post surgery Results & Data Results & Data ([facility]) Vital Signs (Past 12 Hours) Vital Signs Temp Pulse Pulse Resp BP BP Pulse Ox 07/14/21 14:20 36.4 C L 70 12 134/76 127/56 L 98 07/14/21 14:10 36.4 C L 70 10 L 135/78 135/56 L 97 07/14/21 14:00 36.4 C L 70 10 L 153/85 H 158/77 H 98 07/14/21 13:50 70 10 L 152/76 H 139/79 100 07/14/21 13:40 71 10 L 149/86 H 100 07/14/21 13:30 70 14 152/82 H 100 07/14/21 13:23 36.1 C L 77 16 139/78 98 07/14/21 06:45 36.9 C 70 20 109/64 93
[2021-07-14 16:30] LABS: Mean Corpuscular Hgb Conc 32.4 g/dL (32-36)
[2021-07-14 16:32] LABS: Albumin Globulin Ratio 1.5 (0.9-2); Albumin Level 3.7 gm/dl (3.4-5.0); BUN Creatinine Ratio 28.5 (10-20); Bilirubin,Total 0.6 mg/dl (0.2-1.0); Calcium 9.5 mg/dl (8.5-10.1); Creatinine Clr Calc Pharmacy 32.9 ml/min; Est GFR (African American) 28.6 ml/min; Est GFR (Non-African American) 24.7 ml/min; Globulin 2.5 gm/dl (2.5-4.0); Magnesium 2.1 mg/dl (1.7-2.4); Phosphorus 4.5 mg/dl (2.5-4.9); Potassium 4.2 mmol/L (3.5-5.1); Total Protein 6.2 gm/dl (6.0-8.3)
[2021-07-14] MEDS: INSULIN ASPART PER UNIT SC SCH ×2 (16:40→21:03)
--- NOTE | 2021-07-14 17:29 | Electrocardiogram Report ---
Test Reason : Blood Pressure : / mmHG Vent. Rate : 070 BPM Atrial Rate : 064 BPM P-R Int : 158 ms QRS Dur : 154 ms QT Int : 544 ms P-R-T Axes : 000 173 -11 degrees QTc Int : 587 ms AV dual-paced rhythm Biventricular pacemaker detected Abnormal ECG When compared with ECG of 26-JUN-2021 12:22, No significant change was found Confirmed by Franck Staley ([id number]) on 07/14/2021 5:29:23 PM Referred By: Gal Leigh Confirmed By:Mina Staley
[2021-07-14] MEDS: INSULIN HUMAN NPH SC SCH (18:59)
[2021-07-14] MEDS: ceFAZolin 2000MG 2,000 MG/15 ML SYR IV SCH (19:52)
--- NOTE | 2021-07-14 20:04 | Pharmacy Report ---
Pharmacy Glycemic Short Note 2 - Date of Service July 14, 2021 - Glycemic Short BSG Results (Last 24 hours): 07/14/21 07/14/21 07/14/21 06:44 13:22 15:50 Glucose 198 H POC Glucose 168 H 227 H OUTPATIENT ANTIDIABETIC REGIMEN: * NPH 22 units SQ BID * Regular insulin with meals - 40 units with break/lunch and 50 units with supper * A1c = 8.2% (06/26/21) ASSESSMENT: * Levon is a 75 yo T2DM male s/p lumbar decompression and fusion surgery * Patient takes ~174 units of insulin per day as an outpatient (very bolus heavy). Will attempt more of a 50% basal-50% bolus split while admitted. * Ordered dexamethasone 6 mg IV q8h x3 post-operatively - will utilize tight novolog parameters and check BSG overnight at 00 and 04 for POD #1. * Hesitant to significantly increase NPH per patient experiencing nausea and vomiting. PLAN FOR INPATIENT GLYCEMIC CONTROL: * Basal insulin * NPH 30 units SQ BID * Bolus insulin * NovoLog per scale ACHS or Q6hrs while NPO * Goal Range: Low 110 mg/dL - High 140 mg/dL * Correction Factor: 10 mg/dL/unit * Nutritional / Prandial insulin per carb ratio of 1 unit per 3 grams CHO consumed thank you
[2021-07-14] MEDS: MAGNESIUM OXIDE 400 MG TAB PO SCH (20:33)
[2021-07-14] MEDS: DOCUSATE SODIUM/SENNA 50/8.6MG TAB PO SCH (20:33)
[2021-07-14] MEDS: BISOPROLOL FUMARATE 5 MG TAB PO SCH (20:33)
[2021-07-14] MEDS ORDERED: INSULIN PROTOCOL GOAL RANGE ONE (21:05)
[2021-07-14] MEDS ORDERED: STAT IV Infusion **Titration per Protocol STA (21:05)
[2021-07-14] MEDS ORDERED: INSULIN REGULAR 250 UNITS in SODIUM CHLORIDE 0.9% 247.5 ML IV SCH (21:15)
[2021-07-14] MEDS ORDERED: NovoLIN-R BOLUS FROM BAG IV ONE (21:15)
[2021-07-14] MEDS ORDERED: INSULIN HUMAN NPH SC ONE (21:15)
[2021-07-14] MEDS ORDERED: NURSING DECISION MEDICATION ONE (22:54)
[2021-07-14] MEDS ORDERED: COUGH DROP (SUGAR FREE) LOZ 24 LOZ/1 BOX BUCCAL ONE (22:58)
[2021-07-14] MEDS: traMADol HCL 50 MG TABLET PO PRN (23:00)
[2021-07-14] MEDS ORDERED: COUGH DROP (SUGAR FREE) LOZ 24 LOZ/1 BOX BUCCAL PRN (23:00)
[2021-07-15] MEDS: dexAMETHasone 6 MG in SYRINGE 0 ML IV SCH ×2 (00:17→07:28)
[2021-07-15] MEDS: SODIUM CHLORIDE 0.9% 1000ML 1,000 ML IV SCH (02:14)
[2021-07-15] MEDS: ceFAZolin 2000MG 2,000 MG/15 ML SYR IV SCH (03:27)
[2021-07-15 05:39] LABS: Basophils # (auto) 0.01 K/uL (0-0.2); Basophils % (auto) 0.1 %; Eosinophils # (auto) 0.01 K/uL (0-0.5); Eosinophils % (auto) 0.1 %; Hematocrit (blood only) 31.9 % (42-52); Immature Granulocytes % (auto) 0.7 %; Lymphocytes # (auto) 0.31 K/uL (1.2-3.4); Lymphocytes % (auto) 2.3 %; Mean Corpuscular Hgb Conc 31.3 g/dL (32-36); Mean Corpuscular Volume 95.8 fL (80-100); Mean Platelet Volume 9.5 fL (7.4-10.4); Monocytes # (auto) 0.41 K/uL (0.11-0.59); Neutrophils # (auto) 12.81 K/uL (1.4-6.5); Neutrophils % (auto) 93.8 %; Platelet Count 171 K/uL (130-400); RDW Coefficient of Variation 17.1 % (11.5-14.5); RDW Standard Deviation 60.2 fL (36.4-46.3); Red Blood Count 3.33 M/uL (4.7-6.1); White Blood Count 13.65 K/uL (4.8-10.8)
[2021-07-15 06:07] LABS: BUN Creatinine Ratio 29.2 (10-20); Calcium 9.3 mg/dl (8.5-10.1); Est GFR (African American) 32.1 ml/min; Est GFR (Non-African American) 27.7 ml/min; Potassium 4.7 mmol/L (3.5-5.1)
[2021-07-15] MEDS: POLYETHYLENE (MIRALAX) 17 GM PACK PO SCH ×3 (06:10→18:02)
[2021-07-15] MEDS: INSULIN HUMAN NPH SC SCH ×2 (07:23→18:01)
[2021-07-15] MEDS: INSULIN ASPART PER UNIT SC SCH ×5 (07:23→23:54)
[2021-07-15] MEDS: NITROGLYCERIN 0.4 MG/HR PATCH TD SCH (08:39)
[2021-07-15] MEDS: SPIRONOLACTONE 25 MG TAB PO SCH (08:40)
[2021-07-15] MEDS: BUMETANIDE 1 MG TAB PO SCH ×2 (08:40→20:52)
[2021-07-15] MEDS: CETIRIZINE HCL 10 MG TABLET PO SCH (08:41)
[2021-07-15] MEDS: PANTOprazole 40 MG TAB PO SCH (08:41)
[2021-07-15] MEDS: VITAMIN B COMPLEX TAB PO SCH (08:41)
[2021-07-15] MEDS: AMIODARONE 200 MG TAB PO SCH (08:41)
[2021-07-15] MEDS: CHOLECALCIFEROL 5,000 UNITS 125 MCG TAB PO SCH (08:41)
[2021-07-15] MEDS: MAGNESIUM OXIDE 400 MG TAB PO SCH ×2 (08:41→20:52)
[2021-07-15] MEDS: BISOPROLOL FUMARATE 5 MG TAB PO SCH ×2 (08:41→20:52)
[2021-07-15] MEDS: allopurinoL 300 MG TAB PO SCH (08:41)
[2021-07-15] MEDS: MULTIVITAMIN TAB PO SCH (08:41)
[2021-07-15] MEDS ORDERED: NON-FORMULARY MEDICATION (Coq10 (Ubiquinol) 200 mg Capsule) PO SCH (09:00)
--- NOTE | 2021-07-15 09:01 | Anesthesiology Progress Note ---
Date of Service July 15, 2021 Anesthesia Post Procedure Vital Signs Vital Signs: Temp Pulse Pulse Pulse Resp BP BP 07/15/21 08:45 36.5 C 70 20 07/15/21 08:26 70 07/15/21 05:00 70 24 07/15/21 04:00 36.6 C 70 17 100/56 L 07/15/21 03:00 70 17 07/15/21 02:00 70 16 110/55 L 07/15/21 01:00 70 20 07/15/21 00:00 36.8 C 70 16 104/53 L 07/14/21 23:00 70 15 07/14/21 22:00 70 16 07/14/21 21:00 70 18 07/14/21 20:00 36.5 C 70 20 118/67 07/14/21 19:00 70 16 07/14/21 17:00 70 12 07/14/21 16:30 70 22 07/14/21 16:00 36.7 C 70 18 07/14/21 15:45 70 21 07/14/21 15:30 72 18 07/14/21 15:15 70 21 07/14/21 15:00 70 17 07/14/21 14:45 70 22 07/14/21 14:41 70 17 07/14/21 14:20 36.4 C L 70 12 134/76 07/14/21 14:10 36.4 C L 70 10 L 135/78 07/14/21 14:00 36.4 C L 70 10 L 153/85 H 07/14/21 13:50 70 10 L 152/76 H 07/14/21 13:40 71 10 L 07/14/21 13:30 70 14 07/14/21 13:23 36.1 C L 77 16 BP Pulse Ox 07/15/21 08:45 105/61 94 07/15/21 08:26 07/15/21 05:00 94 07/15/21 04:00 92 07/15/21 03:00 95 07/15/21 02:00 94 07/15/21 01:00 95 07/15/21 00:00 94 07/14/21 23:00 97 07/14/21 22:00 99 07/14/21 21:00 98 07/14/21 20:00 97 07/14/21 19:00 98 07/14/21 17:00 94 07/14/21 16:30 93 07/14/21 16:00 92 07/14/21 15:45 93 07/14/21 15:30 94 07/14/21 15:15 94 07/14/21 15:00 95 07/14/21 14:45 93 07/14/21 14:41 95 07/14/21 14:20 127/56 L 98 07/14/21 14:10 135/56 L 97 07/14/21 14:00 158/77 H 98 07/14/21 13:50 139/79 100 07/14/21 13:40 149/86 H 100 07/14/21 13:30 152/82 H 100 07/14/21 13:23 139/78 98 Pain Intensity Back: Pain Intensity: 4 Transfer of Care Handoff Completed per policy Notes Mental Status: alert / awake / arousable and participated in evaluation Patient Amnestic to Procedure: Yes Nausea / Vomiting: adequately controlled Pain: adequately controlled Airway Patency, RR, SpO2: stable & adequate BP & HR: stable & adequate Hydration State: stable & adequate Anesthetic Complications: no major complications apparent and Pt Satisfied with anesthetic care Notes: Pt reports feeling well this morning. No questions or concerns about his anesth esia care yesterday.
--- NOTE | 2021-07-15 09:59 | Critical Care Progress Note ---
Date of Service July 15, 2021 Assessment & Plan (1) Neurogenic claudication due to lumbar spinal stenosis: (2) ICD (implantable cardioverter-defibrillator) in place: (3) Hypertension: (4) Diabetes mellitus, type 2: (5) Chronic kidney disease: (6) CHF (congestive heart failure): (7) Atrial fibrillation: Plan: Patient is a 75-year-old male with an extensive cardiac history presenting to the ICU for monitoring status post L3-S1 therapeutic fusion. Patient is hemodynamically stable at this time. Neuro CAM ICU negative. PT/OT Pulmonology incentive spirometer. Cardiovascular History of atrial fibrillation, previous DC with multiple stent placements, congestive heart failure, and ICD. Continue amiodarone, bisoprolol, Plavix, and spironolactone. Renal/electrolytes ICU electrolyte replacement protocol. Patient has a history of CKD 3. Monitor creatinine daily. GI/diet Carb consistent diet. Neri catheter in place. Monitor I's and O's. Endo No history of thyroid disease. ICU glycemic protocol with history of type 2 diabetes. Heme-onc CBC overall within normal limits. DVT prophylaxis per Ortho. SCDs for DVT prophylaxis for now. MSK Status post fusion of L3-S1. Disposition: Stable for downgrade from ICU CODE STATUS: Full code Admission and Anticipated Discharge Date Admission Date: July 14, 2021 Subjective Patient able to eat breakfast feels improved compared to preop feels that he is able to move better with less pain. Denies chest pain denies shortness of breath. Physical Exam Physical Exam: General: Alert. nontoxic. Skin: Warm, dry, Head: Atraumatic Ears, nose, mouth and throat: airway patent Cardiovascular: Normal peripheral perfusion Respiratory: no respiratory distress Gastrointestinal: Non distended Musculoskeletal: No deformity Results & Data Results & Data ([facility]) Vital Signs (Past 12 Hours) Vital Signs Temp Pulse Pulse Pulse Resp BP BP 07/15/21 08:45 36.5 C 70 20 07/15/21 08:26 70 07/15/21 05:00 70 24 07/15/21 04:00 36.6 C 70 17 100/56 L 07/15/21 03:00 70 17 07/15/21 02:00 70 16 110/55 L 07/15/21 01:00 70 20 07/15/21 00:00 36.8 C 70 16 104/53 L 07/14/21 23:00 70 15 07/14/21 22:00 70 16 BP Pulse Ox 07/15/21 08:45 105/61 94 07/15/21 08:26 07/15/21 05:00 94 07/15/21 04:00 92 07/15/21 03:00 95 07/15/21 02:00 94 07/15/21 01:00 95 07/15/21 00:00 94 07/14/21 23:00 97 07/14/21 22:00 99 Critical Care Results & Data Vital Signs (Past 12 Hours) Vital Signs Temp Pulse Pulse Pulse Resp BP BP 07/15/21 08:45 36.5 C 70 20 07/15/21 08:26 70 07/15/21 05:00 70 24 07/15/21 04:00 36.6 C 70 17 100/56 L 07/15/21 03:00 70 17 07/15/21 02:00 70 16 110/55 L 07/15/21 01:00 70 20 07/15/21 00:00 36.8 C 70 16 104/53 L 07/14/21 23:00 70 15 07/14/21 22:00 70 16 BP Pulse Ox 07/15/21 08:45 105/61 94 07/15/21 08:26 07/15/21 05:00 94 07/15/21 04:00 92 07/15/21 03:00 95 07/15/21 02:00 94 07/15/21 01:00 95 07/15/21 00:00 94 07/14/21 23:00 97 07/14/21 22:00 99 Lab & Micro Results (Past 24 Hours) RBC 3.33 M/uL (4.7-6.1) L 07/15/21 WBC 13.65 K/uL (4.8-10.8) H 07/15/21 Hgb 10.0 g/dL (14.0-18.0) L 07/15/21 Hct 31.9 % (42-52) L 07/15/21 MCV 95.8 fL (80-100) 07/15/21 MCH 30.0 pg (25-34) 07/15/21 MCHC 31.3 g/dL (32-36) L 07/15/21 RDW Standard Deviation 60.2 fL (36.4-46.3) H 07/15/21 RDW Coefficient of Variation 17.1 % (11.5-14.5) H 07/15/21 Plt Count 171 K/uL (130-400) 07/15/21 MPV 9.5 fL (7.4-10.4) 07/15/21 Nucleated Red Blood Cells % (auto) 0.1 % 07/14/21 Nucleated RBC Absolute Count (auto) 0.02 K/uL (0-0) H 07/14/21 Neutrophils (%) (Auto) 93.8 % 07/15/21 Lymphocytes (%) (Auto) 2.3 % 07/15/21 Monocytes # (Auto) 0.41 K/uL (0.11-0.59) 07/15/21 Eosinophils # (Auto) 0.01 K/uL (0-0.5) 07/15/21 Immature Granulocyte % (Auto) 0.7 % 07/15/21 Neutrophils # (Auto) 12.81 K/uL (1.4-6.5) H 07/15/21 Lymphocytes # (Auto) 0.31 K/uL (1.2-3.4) L 07/15/21 Monocytes # (Auto) 0.41 K/uL (0.11-0.59) 07/15/21 Eosinophils # (Auto) 0.01 K/uL (0-0.5) 07/15/21 Basophils # (Auto) 0.01 K/uL (0-0.2) 07/15/21 Immature Granulocyte # (Auto) 0.10 K/uL (0.00-0.02) H 07/15/21 Na 138 mmol/L (136-145) 07/15/21 K 4.7 mmol/L (3.5-5.1) 07/15/21 Cl 105 mmol/L (98-107) 07/15/21 CO2 25 mmol/L (21-32) 07/15/21 Anion Gap 8 (3-11) 07/15/21 BUN 66 mg/dl (6-23) H 07/15/21 Creatinine 2.26 mg/dl (0.6-1.4) H 07/15/21 Estimated GFR ( Amer) 32.1 ml/min 07/15/21 Estimated GFR (Non-Af Amer) 27.7 ml/min 07/15/21 BUN/Creatinine Ratio 29.2 (10-20) H 07/15/21 Glu 138 mg/dl (70-99(Fasting)) H 07/15/21 Ca 9.3 mg/dl (8.5-10.1) 07/15/21 Phosphorus Level 4.5 mg/dl (2.5-4.9) 07/14/21 Total Bilirubin 0.6 mg/dl (0.2-1.0) 07/14/21 AST 24 U/L (13-39) 07/14/21 ALT 17 U/L (7-52) 07/14/21 Alkaline Phosphatase 90 U/L (34-104) 07/14/21 TP 6.2 gm/dl (6.0-8.3) 07/14/21 Albumin 3.7 gm/dl (3.4-5.0) 07/14/21 Globulin 2.5 gm/dl (2.5-4.0) 07/14/21 Albumin/Globulin Ratio 1.5 (0.9-2) 07/14/21 Mg 2.1 mg/dl (1.7-2.4) 07/14/21 15:50 07/14/21 Calcium Level 9.3 mg/dl (8.5-10.1) 07/15/21 05:02 07/15/21 Diagnostic Findings (Past 24 Hours) Lumbar Spine X-Ray 07/14/21 07:45 FL lumbar spine 2-3V CLINICAL HISTORY: L3-S1 DECOMPRESSION AND FUSION WITH INTERBODY COMPARISON STUDY: None. FLUOROSCOPY TIME: 23 seconds. 2 fluoroscopic spot images of the lumbar spine.. FINDINGS: Posterior decompression and fusion from L3 through L5 with pedicle screws and rods. The hardware appears intact. There is an L4-5 disc spacer present. IMPRESSION: Fluoroscopic assistance provided for L3-L5 posterior decompression and fusion ACT 112: Negative or not required by law. Electronically signed by: Deni Johnston M.D. 07/14/2021 1:31 PM Chest X-Ray 07/14/21 13:20 XR chest 1V portable HISTORY: evaluate for central line placement COMPARISON: None. FINDINGS: No pneumothorax. No pleural effusions. There is a right jugular central venous catheter terminates at the SVC. There is left-sided pacemaker noted. There are poststernotomy changes. The heart is enlarged. There is mild central pulmonary vascular congestion without overt edema. No focal lung consolidations to suggest pneumonia. IMPRESSION: 1. Right jugular central venous catheter terminates at the SVC. 2. No pneumothorax. 3. Cardiomegaly with mild congestive change. ACT 112: Negative or not required by law. Electronically signed by: Deni Johnston M.D. 07/14/2021 2:16 PM I & O Totals 24 Hours 07/14/21 07/15/21 07/16/21 06:59 06:59 06:59 Intake Total 3594.1 / 3594.1 24.070 / 24.070 Output Total 1999 Balance 1594.1 / 1594.1 -5.930 / -5.930 Cumulative 05/30/21 13:19 thru 07/15/21 09:43 Intake Total 3618.170 Output Total 2029 Balance 1588.170 RT Ventilator Mngmt (Last Documented) Ventilator Ordered Settings Respiratory Rate 20 07/15/21 08:45 Ventilator - PT Measurements Respiratory Rate 20 Coding Level of Care Code 74823 Subseq Hosp Care Lvl 3 Diagnoses Neurogenic claudication due to lumbar spinal stenosis M48.062 ICD (implantable cardioverter-defibrillator) in place Z95.810 Hypertension I10 Diabetes mellitus, type 2 E11.9 Chronic kidney disease N18.9 CHF (congestive heart failure) I50.9 Atrial fibrillation I48.91
--- NOTE | 2021-07-15 10:37 | Orthopedic Progress Note ---
Date of Service July 15, 2021 Assessment & Plan (1) Neurogenic claudication due to lumbar spinal stenosis: Plan: This time we will encourage bed to chair as tolerated. Initiate physical therapy as tolerated. Monitor his LATOSHA output. He is okay to transfer to regular floor per medicine's recommendation. For Admission and Anticipated Discharge Date Admission Date: July 14, 2021 Subjective Back pain controlled leg pain improved Physical Exam Physical Exam: Patient has constricted testing appears comfortable. Results & Data ([facility]) Vital Signs (Past 12 Hours) Vital Signs Temp Pulse Pulse Pulse Resp BP BP 07/15/21 08:45 36.5 C 70 20 07/15/21 08:26 70 07/15/21 05:00 70 24 07/15/21 04:00 36.6 C 70 17 100/56 L 07/15/21 03:00 70 17 07/15/21 02:00 70 16 110/55 L 07/15/21 01:00 70 20 07/15/21 00:00 36.8 C 70 16 104/53 L 07/14/21 23:00 70 15 BP Pulse Ox 07/15/21 08:45 105/61 94 07/15/21 08:26 07/15/21 05:00 94 07/15/21 04:00 92 07/15/21 03:00 95 07/15/21 02:00 94 07/15/21 01:00 95 07/15/21 00:00 94 07/14/21 23:00 97
[2021-07-15] MEDS ORDERED: INSULIN HUMAN NPH SC ONE (12:00)
--- NOTE | 2021-07-15 13:33 | Hospitalist Progress Note ---
Date of Service July 15, 2021 Assessment & Plan (1) Neurogenic claudication due to lumbar spinal stenosis: Plan: (1) Neurogenic claudication due to lumbar spinal stenosis: (1) S/P lumbar decompression with bilateral medial facetectomies and foraminotomies by Dr. Leigh on 07/14. - Pain management, bowel regimen and DVT ppx per the primary team - PT/OT consults -Hemoglobin fairly stable around 10-11, continue to monitor. -Clinically patient doing fine, has moved bowel, eating his breakfast at bedside exam today morning, pain under control, sitting up in bed. - Neri catheter in place -Can downgrade from ICU. (2) Coronary artery disease: (3) ICD (implantable cardioverter-defibrillator) in place: (4) Atrial fibrillation: (5) CHF (congestive heart failure): (6) Hypertension: (7) Hyperlipidemia: - Has undergone multiple cardiac caths with 20 STENTS IN HEART (LAST PLACED "A COUPLE YEARS AGO"), Last cardiac cath in Mar 2021 at [facility]: 100% [employer] of mid RCA. 100% occluded SVG to RCA. Prox LAD 100% stenosed. Mild disease of SVG to left Cx. Sig elevated R atrial and R ventricular pressures. - History of coronary artery bypass graft X 4 vessels twice- 1993 and 2002 at [facility] - October 2020 ECHO - EF of 25-30%, left ventricular hypertrophy, mild to moderate MR, mild TR, estimated pulm artery systolic pressure is 44 mmHg, diastolic dysfunction not assessed as he was in afib when the study was conducted. - No chest pain currently or SOB - Rate controlled with amiodarone - Cont medical management with bisoprolol fumarate, bumex 2 mg QAM, sprionolactone - Can resume Plavix (8) Diabetes mellitus, type 2: - Cont ISS with accuchecks achs - Last A1C 8.2 earlier this month, diet and exercise to be encouraged (9) Chronic kidney disease: - hx of such, follows with nephrology as an outaptient DVT ppx : - teds, scds, per Primary CODE: Full code Dispo: From home, likely to remain in the hospital x 1-2 days. Thank you for involving us in the care of Mr. Phelps . Please do not hesitate to call with questions or concerns. At this time medicine service will follow along. Admission and Anticipated Discharge Date Admission Date: July 14, 2021 Subjective Patient seen and examined at bedside as a follow-up of spinal stenosis of lumbar region with neurogenic claudication status post lumbar decompression with bilateral medial facetectomies and foraminotomies by Dr. Leigh on 07/14. Patient was sitting up in bed, on 2 L oxygen, eating his breakfast, has already moved his bowel, feels pain under control, no new issues overnight. Patient denies any fever/headache/chills/cough/chest pain/palpitations/belly pain/other review of symptoms. Patient is stable to downgrade from ICU. Physical Exam Physical Exam: GENERAL: Alert and oriented x3. NAD, on 2L HEENT: No pallor, no icterus. Pupils equal, round and reactive to light. Oral mucosa moist. NECK: No JVD, no neck masses. HEART: S1 and S2 heard. Regular rate and rhythm. No murmur, no gallop. RESPIRATORY SYSTEM: Normal AP diameter. No accessory muscle use. No wheezing, no crackles. ABDOMEN: Soft, bowel sounds present, nontender, no distention. CENTRAL NERVOUS SYSTEM: No facial droop. Speech is clear. Obeys simple commands. Moves extremities. EXTREMITIES: No edema, no erythema seen. Urinary catheter with yellow urine collection noted. Lower back with clean dressing without soakage and LATOSHA drain in situ with serosanguineous collection noted. Results & Data Results & Data ([facility]) Vital Signs (Past 12 Hours) Vital Signs Temp Pulse Pulse Pulse Resp BP BP 07/15/21 08:45 36.5 C 70 20 07/15/21 08:26 70 07/15/21 05:00 70 24 07/15/21 04:00 36.6 C 70 17 100/56 L 07/15/21 03:00 70 17 07/15/21 02:00 70 16 110/55 L BP Pulse Ox 07/15/21 08:45 105/61 94 07/15/21 08:26 07/15/21 05:00 94 07/15/21 04:00 92 07/15/21 03:00 95 07/15/21 02:00 94
--- NOTE | 2021-07-15 13:53 | Pharmacy Report ---
Pharmacy Glycemic Short Note 2 - Date of Service July 15, 2021 - Glycemic Short BSG Results (Last 24 hours): 07/14/21 07/14/21 07/14/21 15:50 20:53 20:55 Glucose 198 H POC Glucose 350 H* 334 H* 07/14/21 07/14/21 07/15/21 22:25 23:28 00:22 Glucose POC Glucose 329 H* 290 H 260 H 07/15/21 07/15/21 07/15/21 01:26 02:12 03:25 Glucose POC Glucose 230 H 198 H 173 H 07/15/21 07/15/21 07/15/21 04:21 05:02 05:34 Glucose 138 H POC Glucose 157 H 144 H 07/15/21 07/15/21 07/15/21 07:17 09:28 11:18 Glucose POC Glucose 119 H 168 H 125 H OUTPATIENT ANTIDIABETIC REGIMEN: * NPH 22 units SQ BID * Regular insulin with meals - 40 units with break/lunch and 50 units with supper * A1c = 8.2% (06/26/21) ASSESSMENT: 07/15: * Patient was started on an Insulin drip last night since BSG donovan above 300 mg/dl at HS even after getting 30 units of NPH at dinner. * Insulin drip has been running steadily at 5.8 ml/hr since last night. * IV Dex 6 mg Q8h x 3 doses were ordered. An additional dose of NPH 20 units given around bedtime to offset steroid induced hyperglycemia. * Fasting BSG today was 119 mg/dl. NPH 30 units given this AM. * Last dose of IV Dex 6 mg given today AM. An additional dose of NPH 20 units was given at noon today to try to get patient off the insulin drip. * If IV insulin turns itself off per drip calculator or rate decreases down to less than 2 ml/hr, then will d/c the insulin drip and plan to manage patient on basal + bolus insulin only. Background 07/14/21: * Levon is a 75 yo T2DM male s/p lumbar decompression and fusion surgery * Patient takes ~174 units of insulin per day as an outpatient (very bolus heavy). Will attempt more of a 50% basal-50% bolus split while admitted. * Ordered dexamethasone 6 mg IV q8h x3 post-operatively - will utilize tight novolog parameters and check BSG overnight at 00 and 04 for POD #1. * Hesitant to significantly increase NPH per patient experiencing nausea and vomiting. PLAN FOR INPATIENT GLYCEMIC CONTROL: * IV Insulin drip titrated per protocol to goal BSG between 110-180 mg/dl * Basal insulin * NPH 30 units SQ today AM, 20 units at noon, 30 units at dinner * Bolus insulin * NovoLog per scale ACHS or Q6hrs while NPO * Goal Range: Low 110 mg/dL - High 140 mg/dL * Correction Factor: 10 mg/dL/unit * Nutritional / Prandial insulin per carb ratio of 1 unit per 3 grams CHO consumed thank you
[2021-07-15] MEDS ORDERED: DC IV INSULIN INFUSION 1 EA DEVI SCH (18:00)
[2021-07-15] MEDS ORDERED: INSULIN ASPART PER UNIT SC STA (18:07)
[2021-07-15] MEDS: DOCUSATE SODIUM/SENNA 50/8.6MG TAB PO SCH (20:42)
[2021-07-16] MEDS: INSULIN ASPART PER UNIT SC SCH ×5 (03:48→20:44)
[2021-07-16 05:27] LABS: Hemoglobin 9.2 g/dL (14.0-18.0); Mean Corpuscular Hemoglobin 30.2 pg (25-34); Mean Corpuscular Hgb Conc 31.7 g/dL (32-36); Mean Corpuscular Volume 95.1 fL (80-100); Platelet Count 159 K/uL (130-400); RDW Coefficient of Variation 17.1 % (11.5-14.5); RDW Standard Deviation 59.1 fL (36.4-46.3); Red Blood Count 3.05 M/uL (4.7-6.1); White Blood Count 17.34 K/uL (4.8-10.8)
[2021-07-16 06:24] LABS: BUN Creatinine Ratio 30.4 (10-20); Calcium 9.1 mg/dl (8.5-10.1); Creatinine Clr Calc Pharmacy 31.3 ml/min; Est GFR (African American) 32.5 ml/min; Magnesium 2.3 mg/dl (1.7-2.4); Potassium 4.7 mmol/L (3.5-5.1)
[2021-07-16] MEDS: traMADol HCL 50 MG TABLET PO PRN (07:33)
[2021-07-16] MEDS: INSULIN HUMAN NPH SC SCH ×2 (08:17→16:56)
[2021-07-16] MEDS: CLOPIDOGREL BISULFATE 75 MG TAB PO SCH (08:18)
[2021-07-16] MEDS: MAGNESIUM OXIDE 400 MG TAB PO SCH ×2 (08:18→20:43)
[2021-07-16] MEDS: NITROGLYCERIN 0.4 MG/HR PATCH TD SCH (08:18)
[2021-07-16] MEDS: BISOPROLOL FUMARATE 5 MG TAB PO SCH ×2 (08:18→20:43)
[2021-07-16] MEDS: CHOLECALCIFEROL 5,000 UNITS 125 MCG TAB PO SCH (08:18)
[2021-07-16] MEDS: SPIRONOLACTONE 25 MG TAB PO SCH (08:18)
[2021-07-16] MEDS: allopurinoL 300 MG TAB PO SCH (08:18)
[2021-07-16] MEDS: AMIODARONE 200 MG TAB PO SCH (08:19)
[2021-07-16] MEDS: BUMETANIDE 1 MG TAB PO SCH ×2 (08:19→20:43)
[2021-07-16] MEDS: VITAMIN B COMPLEX TAB PO SCH (08:19)
[2021-07-16] MEDS: MULTIVITAMIN TAB PO SCH (08:19)
[2021-07-16] MEDS: PANTOprazole 40 MG TAB PO SCH (08:20)
[2021-07-16] MEDS: CETIRIZINE HCL 10 MG TABLET PO SCH (10:31)
--- NOTE | 2021-07-16 11:02 | Orthopedic Progress Note ---
Date of Service July 16, 2021 Assessment & Plan (1) Neurogenic claudication due to lumbar spinal stenosis: Plan: This time continue physical therapy monitor his LATOSHA output. Will assess disposition the next few days rehab versus home. Admission and Anticipated Discharge Date Admission Date: July 14, 2021 Subjective Back pain controlled leg pain improved tolerating physical therapy Physical Exam Physical Exam: Patient is in the chair at the bedside. Is to strength testing. Appears comfortable. Results & Data ([facility]) Vital Signs (Past 12 Hours) Vital Signs Temp Pulse Pulse Resp BP BP Pulse Ox 07/16/21 08:10 36.8 C 72 16 105/45 L 94 07/16/21 03:49 36.8 C 71 16 107/60 94 07/15/21 23:54 36.9 C 70 21 97/53 L 94
--- NOTE | 2021-07-16 14:06 | Pharmacy Report ---
Pharmacy Glycemic Short Note 2 - Date of Service July 16, 2021 - Glycemic Short BSG Results (Last 24 hours): 07/15/21 07/15/21 07/15/21 15:12 16:20 17:58 Glucose POC Glucose 92 82 257 H 07/15/21 07/15/21 07/16/21 20:40 23:49 03:37 Glucose POC Glucose 104 H 101 H 122 H 07/16/21 07/16/21 07/16/21 04:57 07:13 11:27 Glucose 120 H POC Glucose 147 H > 600 H* 07/16/21 11:29 Glucose POC Glucose 223 H OUTPATIENT ANTIDIABETIC REGIMEN: * NPH 22 units SQ BID * Regular insulin with meals - 40 units with breakfast/ lunch and 50 units with supper * A1c = 8.2% (06/26/21) ASSESSMENT: 07/16: * Patient received total of around 200 units of insulin yesterday from basal, bolus and IV. * IV insulin was discontinued around 16:30 yesterday after patient's bsg tiana nued to trend downwards. * Fasting BSG today AM was 147 mg/dl. Basal NPH 30 units was given with breakfast and 30 units is ordered with dinner today. * Novolog parameters last night was ordered based on wt and stress of 3. 07/15: * Patient was started on an Insulin drip last night since BSG donovan above 300 mg/dl at HS even after getting 30 units of NPH at dinner. * Insulin drip has been running steadily at 5.8 ml/hr since last night. * IV Dex 6 mg Q8h x 3 doses were ordered. An additional dose of NPH 20 units given around bedtime to offset steroid induced hyperglycemia. * Fasting BSG today was 119 mg/dl. NPH 30 units given this AM. * Last dose of IV Dex 6 mg given today AM. An additional dose of NPH 20 units was given at noon today to try to get patient off the insulin drip. * If IV insulin turns itself off per drip calculator or rate decreases down to less than 2 ml/hr, then will d/c the insulin drip and plan to manage patient on basal + bolus insulin only. Background 07/14/21: * Levon is a 75 yo T2DM male s/p lumbar decompression and fusion surgery * Patient takes ~174 units of insulin per day as an outpatient (very bolus heavy). Will attempt more of a 50% basal-50% bolus split while admitted. * Ordered dexamethasone 6 mg IV q8h x3 post-operatively - will utilize tight novolog parameters and check BSG overnight at 00 and 04 for POD #1. * Hesitant to significantly increase NPH per patient experiencing nausea and vomiting. PLAN FOR INPATIENT GLYCEMIC CONTROL: * Basal insulin * NPH 30 units SQ QAM, 30 units SQ with dinner * Bolus insulin * NovoLog per scale ACHS or Q6hrs while NPO * Goal Range: Low 110 mg/dL - High 140 mg/dL * Correction Factor: 15 mg/dL/unit * Nutritional / Prandial insulin per carb ratio of 1 unit per 5 grams CHO consumed
--- NOTE | 2021-07-16 14:20 | Hospitalist Progress Note ---
Date of Service July 16, 2021 Assessment & Plan (1) Neurogenic claudication due to lumbar spinal stenosis: Plan: (1) Neurogenic claudication due to lumbar spinal stenosis: (1) S/P lumbar decompression with bilateral medial facetectomies and foraminotomies by Dr. Leigh on 07/14. - Pain management, bowel regimen and DVT ppx per the primary team - PT/OT consults -Hemoglobin fairly stable around 10-11, continue to monitor. -Clinically patient doing fine, pain under control, sitting up in chair, able to work/walk with PT. - Neri cath can be taken out. (2) Coronary artery disease: (3) ICD (implantable cardioverter-defibrillator) in place: (4) Atrial fibrillation: (5) CHF (congestive heart failure): (6) Hypertension: (7) Hyperlipidemia: - Has undergone multiple cardiac caths with 20 STENTS IN HEART (LAST PLACED "A COUPLE YEARS AGO"), Last cardiac cath in Mar 2021 at 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 100% occluded SVG to RCA. Prox LAD 100% stenosed. Mild disease of SVG to left Cx. Sig elevated R atrial and R ventricular pressures. - History of coronary artery bypass graft X 4 vessels twice- 1993 and 2002 at [facility] - October 2020 ECHO - EF of 25-30%, left ventricular hypertrophy, mild to moderate MR, mild TR, estimated pulm artery systolic pressure is 44 mmHg, diastolic dysfunction not assessed as he was in afib when the study was conducted. - No chest pain currently or SOB - Rate controlled with amiodarone - Cont medical management with bisoprolol fumarate, bumex 2 mg QAM, sprionolactone, plavix (8) Diabetes mellitus, type 2: - Cont ISS with accuchecks achs - Last A1C 8.2 earlier this month, diet and exercise to be encouraged (9) Chronic kidney disease: - hx of such, follows with nephrology as an outaptient DVT ppx : - teds, scds, per Primary CODE: Full code Dispo: From home, likely to remain in the hospital x 1-2 days. Per Primary team. Thank you for involving us in the care of Mr. Phelps . Please do not hesitate to call with questions or concerns. At this time medicine service will follow along. Admission and Anticipated Discharge Date Admission Date: July 14, 2021 Subjective Patient seen and examined at bedside as a follow-up of spinal stenosis of lumbar region with neurogenic claudication status post lumbar decompression with bilateral medial facetectomies and foraminotomies by Dr. Leigh on 07/14. Patient was sitting up in chair, on RA, no new acute events overnight, feels pain under control. Patient denies any fever/headache/chills/cough/chest pain/palpitations/belly pain/other review of symptoms. Physical Exam Physical Exam: GENERAL: Alert and oriented x3. NAD, on RA HEENT: No pallor, no icterus. Pupils equal, round and reactive to light. Oral mucosa moist. NECK: No JVD, no neck masses. HEART: S1 and S2 heard. Regular rate and rhythm. No murmur, no gallop. RESPIRATORY SYSTEM: Normal AP diameter. No accessory muscle use. No wheezing, no crackles. ABDOMEN: Soft, bowel sounds present, nontender, no distention. CENTRAL NERVOUS SYSTEM: No facial droop. Speech is clear. Obeys simple commands. Moves extremities. EXTREMITIES: No edema, no erythema seen. Urinary catheter with yellow urine collection noted. Lower back with clean dressing without soakage and LATOSHA drain in situ with serosanguineous collection noted. Results & Data Results & Data ([facility]) Vital Signs (Past 12 Hours) Vital Signs Temp Pulse Pulse Resp BP BP Pulse Ox 07/16/21 08:10 36.8 C 72 16 105/45 L 94 07/16/21 03:49 36.8 C 71 16 107/60 94
[2021-07-16] MEDS: DOCUSATE SODIUM/SENNA 50/8.6MG TAB PO SCH (20:43)
[2021-07-17] MEDS: oxyCODONE HCL IR 5 MG TAB (IMMEDIATE RELEASE) PO PRN (05:37)
[2021-07-17 05:48] LABS: Hematocrit (blood only) 31.8 % (42-52); Hemoglobin 9.9 g/dL (14.0-18.0); Mean Corpuscular Hemoglobin 29.6 pg (25-34); Mean Corpuscular Hgb Conc 31.1 g/dL (32-36); Mean Corpuscular Volume 95.2 fL (80-100); Mean Platelet Volume 10.3 fL (7.4-10.4); Platelet Count 179 K/uL (130-400); RDW Coefficient of Variation 17.2 % (11.5-14.5); RDW Standard Deviation 59.8 fL (36.4-46.3); Red Blood Count 3.34 M/uL (4.7-6.1); White Blood Count 15.21 K/uL (4.8-10.8)
[2021-07-17] MEDS: AMIODARONE 200 MG TAB PO SCH (08:46)
[2021-07-17] MEDS: INSULIN HUMAN NPH SC SCH ×2 (08:46→17:08)
[2021-07-17] MEDS: BISOPROLOL FUMARATE 5 MG TAB PO SCH ×2 (08:46→22:14)
[2021-07-17] MEDS: allopurinoL 300 MG TAB PO SCH (08:46)
[2021-07-17] MEDS: BUMETANIDE 1 MG TAB PO SCH ×2 (08:47→22:15)
[2021-07-17] MEDS: CETIRIZINE HCL 10 MG TABLET PO SCH (08:47)
[2021-07-17] MEDS: CLOPIDOGREL BISULFATE 75 MG TAB PO SCH (08:47)
[2021-07-17] MEDS: CHOLECALCIFEROL 5,000 UNITS 125 MCG TAB PO SCH (08:47)
[2021-07-17] MEDS: NITROGLYCERIN 0.4 MG/HR PATCH TD SCH ×2 (08:48→09:11)
[2021-07-17] MEDS: PANTOprazole 40 MG TAB PO SCH (08:48)
[2021-07-17] MEDS: VITAMIN B COMPLEX TAB PO SCH (08:48)
[2021-07-17] MEDS: SPIRONOLACTONE 25 MG TAB PO SCH (08:48)
[2021-07-17] MEDS: MULTIVITAMIN TAB PO SCH (08:48)
[2021-07-17] MEDS: MAGNESIUM OXIDE 400 MG TAB PO SCH ×2 (08:49→22:14)
[2021-07-17] MEDS: INSULIN ASPART PER UNIT SC SCH ×4 (08:52→21:58)
--- NOTE | 2021-07-17 13:42 | Orthopedic Progress Note ---
Date of Service July 17, 2021 Assessment & Plan (1) Neurogenic claudication due to lumbar spinal stenosis: Plan: This time we will continue to advance therapy as tolerated. Maintain the LATOSHA drain another 24 hours. Admission and Anticipated Discharge Date Admission Date: July 14, 2021 Subjective Patient feeling a bit fatigued today. He denies any significant back pain chest pain. Denies any nausea or vomiting. Denies any leg pain. He was able to tolerate therapy but to a lesser extent this morning. Physical Exam Physical Exam: On exam is in bed at this time. Appears comfortable. Is good strength testing. Results & Data ([facility]) Vital Signs (Past 12 Hours) Vital Signs Temp Pulse Resp BP BP Pulse Ox 07/17/21 12:16 94/62 L 07/17/21 12:15 68/49 L 07/17/21 12:00 70 103/59 L 92 07/17/21 08:00 36.6 C 70 20 89/56 L 94
--- NOTE | 2021-07-17 14:13 | Hospitalist Progress Note ---
Date of Service July 17, 2021 Assessment & Plan (1) Neurogenic claudication due to lumbar spinal stenosis: Plan: (1) Neurogenic claudication due to lumbar spinal stenosis: (1) S/P lumbar decompression with bilateral medial facetectomies and foraminotomies by Dr. Leigh on 07/14. - Pain management, bowel regimen and DVT ppx per the primary team - PT/OT consults -Hemoglobin fairly stable around 10, continue to monitor. -Pain under control, more tired today/fatigued, able to work/walk with PT but less than yesterday. -BP on the lower side, Caution with antihypertensives, use with holding parameters. 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 100% occluded SVG to RCA. Prox LAD 100% stenosed. Mild disease of SVG to left Cx. Sig elevated R atrial and R ventricular pressures. - History of coronary artery bypass graft X 4 vessels twice- 1993 and 2002 at [facility] - October 2020 ECHO - EF of 25-30%, left ventricular hypertrophy, mild to moderate MR, mild TR, estimated pulm artery systolic pressure is 44 mmHg, diastolic dysfunction not assessed as he was in afib when the study was conducted. - No chest pain currently or SOB - Rate controlled with amiodarone - Cont medical management with bisoprolol fumarate, bumex 2 mg QAM, sprionolactone, plavix (8) Diabetes mellitus, type 2: - Cont ISS with accuchecks achs - Last A1C 8.2 earlier this month, diet and exercise to be encouraged (9) Chronic kidney disease: - hx of such, follows with nephrology as an outaptient DVT ppx : - teds, scds, per Primary CODE: Full code Dispo: From home, likely to remain in the hospital x 1-2 days. Per Primary team. Thank you for involving us in the care of Mr. Phelps . Please do not hesitate to call with questions or concerns. At this time medicine service will follow along. Admission and Anticipated Discharge Date Admission Date: July 14, 2021 Subjective Patient seen and examined at bedside as a follow-up of spinal stenosis of lumbar region with neurogenic claudication status post lumbar decompression with bilateral medial facetectomies and foraminotomies by Dr. Leigh on 07/14. Patient was lying in bed, on RA, no new acute events overnight, feels pain under control. He reports feeling tired and fatigued today, eating ok, no nausea or vomiting, reports some dizzinees, BP has been low in AM, procal was negative, no concerns of infection at this point, continue BP meds with holding parameters. Patient denies any fever/headache/chills/cough/chest pain/palpitations/belly pain/other review of symptoms. Physical Exam Physical Exam: GENERAL: Alert and oriented x3. NAD, on RA HEENT: No pallor, no icterus. Pupils equal, round and reactive to light. Oral mucosa moist. NECK: No JVD, no neck masses. HEART: S1 and S2 heard. Regular rate and rhythm. No murmur, no gallop. RESPIRATORY SYSTEM: Normal AP diameter. No accessory muscle use. No wheezing, no crackles. ABDOMEN: Soft, bowel sounds present, nontender, no distention. CENTRAL NERVOUS SYSTEM: No facial droop. Speech is clear. Obeys simple commands. Moves extremities. EXTREMITIES: No edema, no erythema seen. Urinary catheter with yellow urine collection noted. Lower back with clean dressing without soakage and LATOSHA drain in situ with serosanguineous collection noted. Results & Data Results & Data ([facility]) Vital Signs (Past 12 Hours) Vital Signs Temp Pulse Resp BP BP Pulse Ox 07/17/21 12:16 94/62 L 07/17/21 12:15 68/49 L 07/17/21 12:00 70 103/59 L 92 07/17/21 08:00 36.6 C 70 20 89/56 L 94
[2021-07-17] MEDS: traMADol HCL 50 MG TABLET PO PRN (17:32)
[2021-07-17] MEDS: DOCUSATE SODIUM/SENNA 50/8.6MG TAB PO SCH (22:14)
[2021-07-17] MEDS: hydrOXYzine HCl 25 MG TAB PO PRN (22:14)
[2021-07-17] MEDS: ACETAMINOPHEN 500 MG TAB PO PRN (22:18)
[2021-07-18 07:19] LABS: Hematocrit (blood only) 31.5 % (42-52); Hemoglobin 10.3 g/dL (14.0-18.0); Mean Corpuscular Hemoglobin 30.7 pg (25-34); Mean Corpuscular Hgb Conc 32.7 g/dL (32-36); Mean Corpuscular Volume 93.8 fL (80-100); Mean Platelet Volume 10.3 fL (7.4-10.4); Nucleated RBC # (auto) 0.04 K/uL (0-0); Nucleated RBC % (auto) 0.3 %; Platelet Count 179 K/uL (130-400); RDW Coefficient of Variation 17.2 % (11.5-14.5); Red Blood Count 3.36 M/uL (4.7-6.1); White Blood Count 11.18 K/uL (4.8-10.8)
[2021-07-18] MEDS: AMIODARONE 200 MG TAB PO SCH (09:14)
[2021-07-18] MEDS: ACETAMINOPHEN 500 MG TAB PO PRN (09:14)
[2021-07-18] MEDS: HYDROmorphone INJ 1 MG/ML SYRINGE IV PRN ×2 (09:14→18:17)
[2021-07-18] MEDS: CLOPIDOGREL BISULFATE 75 MG TAB PO SCH (09:15)
[2021-07-18] MEDS: allopurinoL 300 MG TAB PO SCH (09:15)
[2021-07-18] MEDS: MULTIVITAMIN TAB PO SCH (09:15)
[2021-07-18] MEDS: CETIRIZINE HCL 10 MG TABLET PO SCH (09:15)
[2021-07-18] MEDS: PANTOprazole 40 MG TAB PO SCH (09:15)
[2021-07-18] MEDS: BUMETANIDE 1 MG TAB PO SCH ×2 (09:15→21:11)
[2021-07-18] MEDS: SPIRONOLACTONE 25 MG TAB PO SCH (09:15)
[2021-07-18] MEDS: BISOPROLOL FUMARATE 5 MG TAB PO SCH ×2 (09:15→21:13)
[2021-07-18] MEDS: VITAMIN B COMPLEX TAB PO SCH (09:15)
[2021-07-18] MEDS: CHOLECALCIFEROL 5,000 UNITS 125 MCG TAB PO SCH (09:15)
[2021-07-18] MEDS: INSULIN HUMAN NPH SC SCH ×2 (09:16→18:05)
[2021-07-18] MEDS: NITROGLYCERIN 0.4 MG/HR PATCH TD SCH (09:16)
[2021-07-18] MEDS: INSULIN ASPART PER UNIT SC SCH ×4 (09:17→21:14)
[2021-07-18] MEDS: MAGNESIUM OXIDE 400 MG TAB PO SCH ×2 (09:17→21:12)
--- NOTE | 2021-07-18 14:03 | Orthopedic Progress Note ---
Date of Service July 18, 2021 Assessment & Plan (1) Neurogenic claudication due to lumbar spinal stenosis: Plan: At this time we will continue physical therapy monitor his LATOSHA output most likely discontinue his drain tomorrow. Hopefully he will be candidate for rehab in the next day or so. Admission and Anticipated Discharge Date Admission Date: July 14, 2021 Subjective Back pain controlled leg pain improved feeling much stronger today. Physical Exam Physical Exam: Patient is severe at the bedside. Is good strength testing. Appears comfortable. Results & Data ([facility]) Vital Signs (Past 12 Hours) Vital Signs Temp Pulse Resp BP Pulse Ox 07/18/21 10:00 36.6 C 70 20 117/67 96 07/18/21 07:00 36.6 C 83 18 102/67 92 07/18/21 03:34 36.8 C 74 20 119/63 95
--- NOTE | 2021-07-18 14:10 | Pharmacy Report ---
Pharmacy Glycemic Short Note 2 - Date of Service July 18, 2021 - Glycemic Short BSG Results (Last 24 hours): 07/17/21 07/17/21 07/17/21 16:13 18:47 20:30 POC Glucose 111 H 94 80 07/18/21 07/18/21 07:23 11:48 POC Glucose 231 H 199 H OUTPATIENT ANTIDIABETIC REGIMEN: * NPH 22 units SQ BID * Regular insulin with meals - 40 units with breakfast/ lunch and 50 units with supper * A1c = 8.2% (06/26/21) ASSESSMENT: 07/18/21 * Patient's BSGs yesterday were [phone] mg/dL. * Patient received 99 units of insulin yesterday (60 units of basal and 39 units of bolus). * Patient's fasting today was 231 mg/dL which was extremely different compared to all other fasting BSGs (147-126 mg/dL). * Will continue with NPH 30 units BID for now. * Tighten CR with breakfast then have looser for rest of the day as patient does trend downwards throughout the day. * Loosen CF as patient does tend to overcorrect. 07/16: * Patient received total of around 200 units of insulin yesterday from basal, bolus and IV. * IV insulin was discontinued around 16:30 yesterday after patient's bsg continued to trend downwards. * Fasting BSG today AM was 147 mg/dl. Basal NPH 30 units was given with zhang kfast and 30 units is ordered with dinner today. * Novolog parameters last night was ordered based on wt and stress of 3. 07/15: * Patient was started on an Insulin drip last night since BSG donovna above 300 mg/dl at HS even after getting 30 units of NPH at dinner. * Insulin drip has been running steadily at 5.8 ml/hr since last night. * IV Dex 6 mg Q8h x 3 doses were ordered. An additional dose of NPH 20 units given around bedtime to offset steroid induced hyperglycemia. * Fasting BSG today was 119 mg/dl. NPH 30 units given this AM. * Last dose of IV Dex 6 mg given today AM. An additional dose of NPH 20 units was given at noon today to try to get patient off the insulin drip. * If IV insulin turns itself off per drip calculator or rate decreases down to less than 2 ml/hr, then will d/c the insulin drip and plan to manage patient on basal + bolus insulin only. Background 07/14/21: * Levon is a 75 yo T2DM male s/p lumbar decompression and fusion surgery * Patient takes ~174 units of insulin per day as an outpatient (very bolus heavy). Will attempt more of a 50% basal-50% bolus split while admitted. * Ordered dexamethasone 6 mg IV q8h x3 post-operatively - will utilize tight novolog parameters and check BSG overnight at 00 and 04 for POD #1. * Hesitant to significantly increase NPH per patient experiencing nausea and vomiting. PLAN FOR INPATIENT GLYCEMIC CONTROL: * Basal insulin * NPH 30 units SQ QAM, 30 units SQ with dinner * Bolus insulin * NovoLog per scale ACHS or Q6hrs while NPO * Goal Range: Low 110 mg/dL - High 140 mg/dL * Correction Factor: 20 mg/dL/unit * Nutritional / Prandial insulin per carb ratio of 1 unit per 6 grams CHO consumed (1 unit per 5 grams CHO consumed for breakfast)
--- NOTE | 2021-07-18 14:14 | Hospitalist Progress Note ---
Date of Service July 18, 2021 Assessment & Plan (1) Neurogenic claudication due to lumbar spinal stenosis: Plan: (1) Neurogenic claudication due to lumbar spinal stenosis: (1) S/P lumbar decompression with bilateral medial facetectomies and foraminotomies by Dr. Leigh on 07/14. - Pain management, bowel regimen and DVT ppx per the primary team - PT/OT consults -Hemoglobin fairly stable around 10, continue to monitor. -Pain under control, more tired today/fatigued, able to work/walk with PT but less than yesterday. -BP on the lower side, Caution with antihypertensives, use with holding parameters. - c/w monitor. 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 100% occluded SVG to RCA. Prox LAD 100% stenosed. Mild disease of SVG to left Cx. Sig elevated R atrial and R ventricular pressures. - History of coronary artery bypass graft X 4 vessels twice- 1993 and 2002 at [facility] - October 2020 ECHO - EF of 25-30%, left ventricular hypertrophy, mild to moderate MR, mild TR, estimated pulm artery systolic pressure is 44 mmHg, diastolic dysfunction not assessed as he was in afib when the study was conducted. - No chest pain currently or SOB - Rate controlled with amiodarone - Cont medical management with bisoprolol fumarate, bumex 2 mg QAM, sprionolactone, plavix (8) Diabetes mellitus, type 2: - Cont ISS with accuchecks achs - Last A1C 8.2 earlier this month, diet and exercise to be encouraged (9) Chronic kidney disease: - hx of such, follows with nephrology as an outaptient DVT ppx : - teds, scds, per Primary CODE: Full code Dispo: From home, Per Primary team. Thank you for involving us in the care of Mr. Phelps . Please do not hesitate to call with questions or concerns. At this time medicine service will follow along. Admission and Anticipated Discharge Date Admission Date: July 14, 2021 Subjective Patient seen and examined at bedside as a follow-up of spinal stenosis of lumbar region with neurogenic claudication status post lumbar decompression with bilateral medial facetectomies and foraminotomies by Dr. Leigh on 07/14. Patient was sitting up in bed, on RA, no new acute events overnight, feels pain under control. Patient reports feeling better today, no nausea/dizziness and was able to work with PT better today. Patient denies any fever/headache/chills/cough/chest pain/palpitations/belly pain/other review of symptoms. Physical Exam Physical Exam: GENERAL: Alert and oriented x3. NAD, on RA HEENT: No pallor, no icterus. Pupils equal, round and reactive to light. Oral mucosa moist. NECK: No JVD, no neck masses. HEART: S1 and S2 heard. Regular rate and rhythm. No murmur, no gallop. RESPIRATORY SYSTEM: Normal AP diameter. No accessory muscle use. No wheezing, no crackles. ABDOMEN: Soft, bowel sounds present, nontender, no distention. CENTRAL NERVOUS SYSTEM: No facial droop. Speech is clear. Obeys simple commands. Moves extremities. EXTREMITIES: No edema, no erythema seen. Lower back with clean dressing without soakage and LATOSHA drain in situ with minimal serosanguineous collection noted. Results & Data Results & Data ([facility]) Vital Signs (Past 12 Hours) Vital Signs Temp Pulse Resp BP Pulse Ox 07/18/21 10:00 36.6 C 70 20 117/67 96 07/18/21 07:00 36.6 C 83 18 102/67 92 07/18/21 03:34 36.8 C 74 20 119/63 95
[2021-07-18] MEDS: DOCUSATE SODIUM/SENNA 50/8.6MG TAB PO SCH (21:09)
[2021-07-18] MEDS: hydrOXYzine HCl 25 MG TAB PO PRN (21:09)
[2021-07-19] MEDS: traMADol HCL 50 MG TABLET PO PRN (00:31)
[2021-07-19] MEDS: oxyCODONE HCL IR 5 MG TAB (IMMEDIATE RELEASE) PO PRN ×2 (02:22→21:42)
[2021-07-19] MEDS: NITROGLYCERIN 0.4 MG/HR PATCH TD SCH (07:24)
[2021-07-19] MEDS: CHOLECALCIFEROL 5,000 UNITS 125 MCG TAB PO SCH (07:25)
[2021-07-19] MEDS: BISOPROLOL FUMARATE 5 MG TAB PO SCH ×2 (07:25→21:30)
[2021-07-19] MEDS: MULTIVITAMIN TAB PO SCH (07:25)
[2021-07-19] MEDS: MAGNESIUM OXIDE 400 MG TAB PO SCH ×2 (07:25→21:31)
[2021-07-19] MEDS: allopurinoL 300 MG TAB PO SCH (07:26)
[2021-07-19] MEDS: VITAMIN B COMPLEX TAB PO SCH (07:26)
[2021-07-19] MEDS: PANTOprazole 40 MG TAB PO SCH (07:26)
[2021-07-19] MEDS: SPIRONOLACTONE 25 MG TAB PO SCH (07:26)
[2021-07-19] MEDS: AMIODARONE 200 MG TAB PO SCH (07:26)
[2021-07-19] MEDS: CLOPIDOGREL BISULFATE 75 MG TAB PO SCH (07:26)
[2021-07-19] MEDS: CETIRIZINE HCL 10 MG TABLET PO SCH (07:26)
[2021-07-19] MEDS: BUMETANIDE 1 MG TAB PO SCH ×2 (07:27→21:31)
[2021-07-19] MEDS: INSULIN ASPART PER UNIT SC SCH ×4 (08:43→21:28)
[2021-07-19] MEDS: INSULIN HUMAN NPH SC SCH ×2 (08:43→18:05)
--- NOTE | 2021-07-19 10:14 | Hospitalist Progress Note ---
Date of Service July 19, 2021 Assessment & Plan (1) Neurogenic claudication due to lumbar spinal stenosis: Plan: (1) Neurogenic claudication due to lumbar spinal stenosis: (1) S/P lumbar decompression with bilateral medial facetectomies and foraminotomies by Dr. Leigh on 07/14. Resume Post Op Care per Surgery Protocol Incentive Spirometry 10x per Hour Resume Relative Home Meds Where Appropriate PT/OT with appropriate fall precautions Transition to PO Pain control DVT Prophylaxis Per Surgery Protocol Monitor Daily Labs (2) Coronary artery disease: (3) ICD (implantable cardioverter-defibrillator) in place: (4) Atrial fibrillation: (5) CHF (congestive heart failure): (6) Hypertension: - caution with antihypertensive, holding parameter (7) Hyperlipidemia: - Has undergone multiple cardiac caths with 20 STENTS (LAST PLACED "A COUPLE YEARS AGO"), Last cardiac cath in Mar 2021 at [facility]: 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 100% occluded SVG to RCA. Prox LAD 100% stenosed. Mild disease of SVG to left Cx. Sig elevated R atrial and R ventricular pressures. - History of coronary artery bypass graft X 4 vessels twice- 1993 and 2002 at [facility] - October 2020 ECHO - EF of 25-30%, left ventricular hypertrophy, mild to moderate MR, mild TR, estimated pulm artery systolic pressure is 44 mmHg, diastolic dysfunction not assessed as he was in afib when the study was conducted. - No chest pain currently or SOB - Rate controlled with amiodarone - Cont medical management with bisoprolol fumarate, bumex 2 mg QAM, sprionolactone, plavix (8) Diabetes mellitus, type 2: - Cont ISS with accuchecks achs (9) Chronic kidney disease: - hx of such, follows with nephrology as an outaptient Labs reviewed DVT ppx : - teds, scds, per Primary CODE: Full code Dispo: From home, Per Primary team. ROS-No Headache, No Visual Changes, No Nausea, No Vomiting, No Fever, No Chills, No Neck Pain or Stiffness, No Chest Pain, No Palpitations, No SOB, No BURT, No Cough, No Sputum, No Wheezing, No Abdominal Pain, No Diarrhea, No Hematemesis, No Hemoptysis, No Unexpected Weight Loss, No Flank pain, No Melena, No He matochezia, No Frequency, No Urgency, No Burning, No Hematuria, No Rashes, No Diaphoresis. Appetite is Normal, Sore Back Physical Exam Gen-AAO x 3, NAD, Afebrile Head-NCAT, EOMI, PERRLA, Anicteric Sclera, No Posterior Pharyngeal Erythema Neck-Supple, No JVD, No Thyromegaly, No Masses, No LAD, No Bruits Lungs-Clear to Auscultation Bilaterally, No Rales, No Rhonchi, No Wheezing, No Crepitus Chest-No S4, +S1, +S2, No S3, No Murmurs, No Rubs, No Gallops, No Ectopy Abdomen-Soft, Bowel Sounds Present, Non Tender, Non Distended, No Hepatomegaly, No Splenomegaly, No Palpable Masses, No Rebound, No Rigidity, No Guarding Musculoskeletal-Full Range of Motion Bilaterally, No CVAT Extremities-No Cyanosis, No Clubbing, No Edema Nuero-Cranial Nerves II-XII grossly intact, Motor WNL, DTRs WNL, Strength WNL, Non Focal Psych-Normal Mood Admission and Anticipated Discharge Date Admission Date: July 14, 2021 Subjective Patient seen, says drains are still in place, will be going to rehab in the next day or so Results & Data Results & Data ([facility]) Vital Signs (Past 12 Hours) Vital Signs Temp Pulse Pulse Resp BP Pulse Ox 07/19/21 07:40 37.0 C 65 18 126/71 94 07/19/21 07:17 70 07/19/21 02:26 37.6 C H 69 18 109/68 94 07/18/21 23:45 37.0 C 70 20 103/53 L 96 07/18/21 22:19 70
--- NOTE | 2021-07-19 16:39 | Orthopedic Progress Note ---
Date of Service July 19, 2021 Assessment & Plan (1) Neurogenic claudication due to lumbar spinal stenosis: Plan: At this point we will continue physical therapy and plan for discharge to rehab tomorrow. Admission and Anticipated Discharge Date Admission Date: July 14, 2021 Subjective Patient's back pain is controlled leg symptoms improved Physical Exam Physical Exam: Patient appears comfortable is good strength testing. Results & Data ([facility]) Vital Signs (Past 12 Hours) Vital Signs Temp Pulse Pulse Resp BP Pulse Ox 07/19/21 15:06 70 07/19/21 11:35 37.0 C 67 18 113/68 95 07/19/21 07:40 37.0 C 65 18 126/71 94 07/19/21 07:17 70
[2021-07-19] MEDS: DOCUSATE SODIUM/SENNA 50/8.6MG TAB PO SCH (21:34)
[2021-07-20] MEDS: oxyCODONE HCL IR 5 MG TAB (IMMEDIATE RELEASE) PO PRN (04:28)
[2021-07-20] MEDS: ACETAMINOPHEN 500 MG TAB PO PRN (04:28)
[2021-07-20 07:21] LABS: Hematocrit (blood only) 30.3 % (42-52); Hemoglobin 9.9 g/dL (14.0-18.0); Mean Corpuscular Hemoglobin 30.7 pg (25-34); Mean Corpuscular Hgb Conc 32.7 g/dL (32-36); Mean Corpuscular Volume 93.8 fL (80-100); Mean Platelet Volume 9.4 fL (7.4-10.4); Nucleated RBC # (auto) 0.09 K/uL (0-0); Nucleated RBC % (auto) 0.7 %; Platelet Count 223 K/uL (130-400); RDW Coefficient of Variation 17.1 % (11.5-14.5); RDW Standard Deviation 58.6 fL (36.4-46.3); Red Blood Count 3.23 M/uL (4.7-6.1)
[2021-07-20 07:44] LABS: Calcium 8.9 mg/dl (8.5-10.1); Creatinine Clr Calc Pharmacy 25.6 ml/min; Est GFR (African American) 21.6 ml/min; Est GFR (Non-African American) 18.6 ml/min
[2021-07-20] MEDS: MAGNESIUM OXIDE 400 MG TAB PO SCH (08:13)
[2021-07-20] MEDS: PANTOprazole 40 MG TAB PO SCH (08:14)
[2021-07-20] MEDS: CLOPIDOGREL BISULFATE 75 MG TAB PO SCH (08:14)
[2021-07-20] MEDS: AMIODARONE 200 MG TAB PO SCH (08:15)
[2021-07-20] MEDS: MULTIVITAMIN TAB PO SCH (08:15)
[2021-07-20] MEDS: VITAMIN B COMPLEX TAB PO SCH (08:15)
[2021-07-20] MEDS: allopurinoL 300 MG TAB PO SCH (08:15)
[2021-07-20] MEDS: CETIRIZINE HCL 10 MG TABLET PO SCH (08:15)
[2021-07-20] MEDS: BISOPROLOL FUMARATE 5 MG TAB PO SCH (08:16)
[2021-07-20] MEDS: CHOLECALCIFEROL 5,000 UNITS 125 MCG TAB PO SCH (08:16)
[2021-07-20] MEDS: SPIRONOLACTONE 25 MG TAB PO SCH (08:17)
[2021-07-20] MEDS: BUMETANIDE 1 MG TAB PO SCH (08:17)
[2021-07-20] MEDS: NITROGLYCERIN 0.4 MG/HR PATCH TD SCH (08:17)
[2021-07-20] MEDS: INSULIN ASPART PER UNIT SC SCH (08:39)
[2021-07-20] MEDS: INSULIN HUMAN NPH SC SCH (08:39)
--- NOTE | 2021-07-20 09:23 | Discharge Summary ---
Date of Service July 20, 2021 Admission HPI Per Admitting Provider This is a 75-year-old male presents with marked decline in status with worsening back and leg pain. Failing course of nonoperative care is here for surgical invention. Admission Exam (Per Admitting) Constitutional well developed Eyes normal visual matta by confrontation Neck normal visual inspection Respiratory normal respiratory effort Cardiovascular Extremities: normal capillary refill Gastrointestinal (Abdomen) Inspection/Auscultation: abdomen normal to inspection Musculoskeletal no cyanosis or clubbing, extremities motor strength 5/5 Skin no rashes, warm and dry Neurologic normal touch/pain/proprioception and moves all extremities Psychiatric A+Ox3, euthymic affect Discharge Data Consultations 07/14/21 15:15 Consult Hospitalist Routine Consult Waxing Machine Operator Routine Procedures Performed Operation Date: 07/14/21 09:05 Actual Procedures p L3-L5 Decompression Fusion with Interbody L4-5, Spinal Cord Monitoring(Not Applicable) - Gal Leigh, DO Hospital Course (1) Neurogenic claudication due to lumbar spinal stenosis: Patient is being discharged to [facility] rehab postoperative day 6 status post lumbar decompression and fusion of L4-[address] Leigh. He has had a bowel movement. Denies any chest pain or shortness of breath. He is making progress in physical therapy. Leg symptoms greatly improved compared to preoperative status. He has been stable throughout his postoperative course. Discharge Instructions ACTIVITY RECOMMENDATIONS: SELF CARE INSTRUCTIONS AFTER THORACIC/LUMBAR FUSIONS 1. You may walk to your tolerance. It is good exercise for your legs and back. Expect some back and intermittent leg aches and pains. 2. You may perform "counter-top" level activities (make a sandwich, mindy with a project, etc.). 3. No bending or lifting of more than 10 pounds or back twisting of any nature (roll like a log when turning in bed). 4. You may ride in a car for 20-30 minutes at a time. No driving until after your first visit with your doctor. 5. Frequent changes of position and restricting sitting to 30 minutes at a time will help limit the amount of back spasms and stiffness you may experience. 6. You may discontinue the use of ambulatory aids (cane, crutches, etc.) once your strength and confidence allow. 7. You may lead tinner the shower and let water strike your incision when you arrive home at least once daily. Do not take a tub bath, sit in a hot tub or go into a swimming pool until after your first recheck in the office. SPECIAL CARE INSTRUCTIONS: VERY IMPORTANT TO READ AND REVIEW A. Your surgical incision has been closed with a cosmetic suture under the skin that will dissolve in about 6 weeks. In 14 days, you can use a pair of clean scissors and cut the suture that is left outside of the skin at the ends of your incision. 1. The small skin tapes can be removed 7 days after surgery if they have not fallen off by that point. 2. You may keep the wound open to air as much as possible to promote healing after post-op day number 5 unless told otherwise by your doctor. 3. If you think the wound looks like it is becoming infected (redness or worsening drainage) and/or you are experiencing fever, chill or worsening back pain and muscle spasms, contact the office so that we may evaluate you as soon as possible. B. Complications are uncommon, but please contact us if you have any signs or symptoms of: 1. wound infection (fever higher than 102.5 degrees F, redness, separation of wound, drainage, or increasing pain from the incision) 2. blood clots in legs (pain, swelling, redness and warmth in legs) 3. urinary tract infection (fever higher than 102.5 degrees F, burning upon urination or increased frequency of urination) 4. nerve problems (inability to walk on your toes or heels, numbness, loss of bowel or bladder control) 5. any other symptoms that concern you C. Please call the office at if you have any concerns or questions about your operation or recovery. D. No smoking! Smoking drastically decreases the chance of a solid fusion. E. Do not take any anti-inflammatory medications (Indocin, Advil, Motrin, Aspirin, Naprosyn, etc.) as these may inhibit the chance of a solid fusion. Tylenol is okay to take for pain. MANAGING PAIN AFTER SPINAL SURGERY 1. Narcotic medication is intended for short-term use and will be provided for surgical pain. Surgical pain usually lasts for a period of 4-6 weeks. Narcotic medication includes Percocet, Vicodin, Darvocet, Tylenol #3 or Lortab. 2. Longer-term pain is more appropriately treated with non-narcotic medication such as Tylenol ES. 3. Muscle spasm is not appropriately treated with narcotics. Muscle relaxers such as Soma, Flexeril or Skelaxin can be used along with Tylenol ES. 4. Remember that we all live with some "aches and pains". This is not unusual or uncommon after an injury or as we get older. a. Back pain is expected and may include muscle spasms for 4 to 6 weeks after surgery. The pain should gradually improve. If the pain worsens for no apparent reason, please contact the office. b. Intermittent leg pain may also be experienced and should not be concerned about unless it worsens for no apparent reason. If so, please contact the office. 5. We will provide appropriate medication within the normal guidelines of their prescribed use. We will also be very cautious and aware of potential abuse and extended duration of patients' medication needs. a. Pain medications are for your comfort and to assist with sleep and rest so that the tissue can heal. They are not provided in order to return to normal activity and should not be used through the day. To do so or worsening pain at night can result from ongoing tissue damage and development of tolerance to the prescribed medicine. 6. Please allow 2-3 days to process refills. Prescriptions will not be mailed but must be picked up at the office. FOLLOW UP VISIT: Keep your scheduled follow-up appointment. Any questions, please call the office at .
--- NOTE | 2021-07-20 09:45 | Hospitalist Progress Note ---
Date of Service July 20, 2021 Assessment & Plan (1) Neurogenic claudication due to lumbar spinal stenosis: Plan: (1) Neurogenic claudication due to lumbar spinal stenosis: (1) S/P lumbar decompression with bilateral medial facetectomies and foraminotomies by Dr. Leigh on 07/14. 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 100% occluded SVG to RCA. Prox LAD 100% stenosed. Mild disease of SVG to left Cx. Sig elevated R atrial and R ventricular pressures. - History of coronary artery bypass graft X 4 vessels twice- 1993 and 2002 at [facility] - October 2020 ECHO - EF of 25-30%, left ventricular hypertrophy, mild to moderate MR, mild TR, estimated pulm artery systolic pressure is 44 mmHg, diastolic dysfunction not assessed as he was in afib when the study was conducted. - No chest pain currently or SOB - Rate controlled with amiodarone - Cont medical management with bisoprolol fumarate, bumex 2 mg QAM, sprionolactone, plavix (8) Diabetes mellitus, type 2: - Cont ISS with accuchecks achs (9) Chronic kidney disease: - hx of such, follows with nephrology as an outaptient Labs reviewed DVT ppx : - teds, scds, per Primary CODE: Full code Dispo: From home, [facility] [place] today. ROS-No Headache, No Visual Changes, No Nausea, No Vomiting, No Fever, No Chills, No Neck Pain or Stiffness, No Chest Pain, No Palpitations, No SOB, No BURT, No Cough, No Sputum, No Wheezing, No Abdominal Pain, No Diarrhea, No Hematemesis, No Hemoptysis, No Unexpected Weight Loss, No Flank pain, No Melena, No Hematochezia, No Frequency, No Urgency, No Burning, No Hematuria, No Rashes, No Diaphoresis. Appetite is Normal, Sore Back Physical Exam Gen-AAO x 3, NAD, Afebrile Head-NCAT, EOMI, PERRLA, Anicteric Sclera, No Posterior Pharyngeal Erythema Neck-Supple, No JVD, No Thyromegaly, No Masses, No LAD, No Bruits Lungs-Clear to Auscultation Bilaterally, No Rales, No Rhonchi, No Wheezing, No Crepitus Chest-No S4, +S1, +S2, No S3, No Murmurs, No Rubs, No Gallops, No Ectopy Abdomen-Soft, Bowel Sounds Present, Non Tender, Non Distended, No Hepatomegaly, No Splenomegaly, No Palpable Masses, No Rebound, No Rigidity, No Guarding Musculoskeletal-Full Range of Motion Bilaterally, No CVAT Extremities-No Cyanosis, No Clubbing, No Edema Nuero-Cranial Nerves II-XII grossly intact, Motor WNL, DTRs WNL, Strength WNL, Non Focal Psych-Normal Mood Admission and Anticipated Discharge Date Admission Date: July 14, 2021 Results & Data Results & Data ([facility]) Vital Signs (Past 12 Hours) Vital Signs Temp Pulse Pulse Resp BP Pulse Ox 07/20/21 07:48 72 07/20/21 07:39 36.6 C 69 14 82/50 L 96 07/20/21 04:00 36.4 C L 71 18 117/66 100 07/19/21 23:00 36.8 C 70 18 111/75 97
== END 2021-07-20 11:45 | DRG 454 ==
LOC: ASU 06:05 → 1E 13:00 → 2N 07-17 15:28